=== PATIENT | female | born 1965 | race Caucasian/White ===

== ENCOUNTER 2017-05-17 09:10 | Observation (INO) | payer OTHER ==
[~2017-05-17] VITALS: Ht 154.9 cm; Wt 85.3 kg
[~2017-05-17 09:10] MED LIST: ALBU8HFA2 INH; ALBU90OI INH; AMOCLA500 PO; AMOCLA875 PO; AMOX500 PO; ARIP10; ARIP10 PO; ARIP15; ASPI81EC PO; AZIT250 PO; BENZ1; BENZ1 PO; BENZ100A PO; CEPH250A PO; CEPH500 PO; CETI5 PO; CLOBETTC TP; CLON.5; CYCL10 PO; ENJUVIA; EPIN.3I IM; EPIPEN0.3 MG/0.3; ERYT.5TO BOTHEYES; FAMO20 PO; Flonase 0.05% N16 GM; GENT15TO TOP; HALO2 PO; HALO5 PO; HYDACE5; HYDACE5 PO; HYDCOR2.5C PR; HYDPAM50; HYDR25SUP PR; IBUP600 PO; IBUP800 PO; JOCK ITCH15 GM TP; LAMO100; LAMO25 PO; LAMO5; LEVSOD150 PO; LORA.5 PO; LORA1; LORA10ER PO; Lamotrigine25 MG PO; MARIJUANA; MELO7.5 PO; MIRT15; Melatonin5 M1 PO; NAPR500 PO; NYST100P TOP; OTC ALLERGY MEDS PRN; OXYACE5T PO; PENVK500 PO; PIRO20 PO; POLY17UD PO; PRAV20 PO; PRED10 PO; PRED20 PO; PROACE100 PO; Pantoprazole So40 MG PO; QUET100 PO; QUET25 PO; RANI150; RXERYTOPTH OP; RXTRAM50 PO; SEROQUEL; SULTRIDS PO; SYNTHETIC CONJUGATED ESTROGENS B; Seroquel Xr300 MG PO; TOPAMAX; TRAM50 PO; TRAZ100; VITAMIN D2000 UNIT PO; Veetids 500500 MG PO; Wal-Phed30 MG PO; ZIPR20; [UNRECOGNIZED DRUG - REMARK] PO
[2017-05-17 10:11] LABS: Source, Urine Clean Catch
[2017-05-17 10:15] LABS: BASOPHILS ABSOLUTE AUTO 0.03 K/mm3 (0.00-0.23); BASOPHILS PERCENT AUTO 0 % (0-2); EOSINOPHILS ABSOLUTE AUTO 0.12 K/mm3 (0.00-0.68); EOSINOPHILS PERCENT AUTO 1 % (0-6); Hematocrit 45.1 % (33.0-51.0); Hemoglobin 14.6 g/dL (11.5-16.0); IMMATURE GRAN ABSOLUTE AUTO 0.06 K/mm3 (0.00-0.10); IMMATURE GRAN PERCENT AUTO 1 % (0-1); LYMPHOCYTES ABSOLUTE AUTO 2.69 K/mm3 (0.84-5.20); LYMPHOCYTES PERCENT AUTO 32 % (21-46); MONOCYTES PERCENT AUTO 9 % (4-13); Mean Corpuscular HGB 27.4 pg (26.0-34.0); Mean Corpuscular HGB Conc 32.4 g/dL (31.5-36.5); Mean Corpuscular Volume 85 fL (80-100); Mean Platelet Volume 9.9 fL (9.1-12.4); NEUTROPHILS ABSOLUTE AUTO 4.83 K/mm3 (1.96-9.15); NEUTROPHILS PERCENT AUTO 57 % (41-73); Platelet Count 298 K/mm3 (150-400); RDW Coefficient Variation 12.7 % (11.7-14.2); RDW Standard Deviation 38.7 fL (35.1-46.3); Red Blood Cell Count 5.32 M/mm3 (3.80-5.20); White Blood Cell Count 8.53 K/mm3 (4.00-11.30)
[2017-05-17 10:25] LABS: Bilirubin, Urine Neg (Neg); Blood, Urine Neg (Neg); Glucose Qualitative, Urine Neg (Neg); Ketones, Urine Neg (Neg); Leukocyte Esterase, Urine Neg (Neg); Nitrite, Urine Neg (Neg); Protein, Urine Neg (Neg); Urobilinogen, Urine NORM (Normal)
[2017-05-17 10:34] LABS: Appearance, Urine Clear (Clear); Color, Urine Yellow (P-Yellow)
[2017-05-17 10:39] LABS: U Amphetamine Screen Not Detected; U Barbituate Screen Not Detected; U Benzodiazapine Screen Not Detected; U Buprenorphine Screen Not Detected; U Cannabinoids Screen Not Detected; U Cocaine Screen Not Detected; U Methadone Screen Not Detected; U Methamphetamine Screen Not Detected; U Opiates Screen Not Detected; U Oxycodone Screen Not Detected; U Phencyclidine Screen Not Detected; U Propoxyphene Screen Not Detected
[2017-05-17 10:39] LABS: Alanine Aminotransfer (ALT/SGP 32 U/L (12-78); Albumin, Blood 3.9 g/dL (3.4-5.0); Alk Phos 93 U/L (50-136); Anion Gap 9 mmol/L (6-16); Aspartate Aminotrans (AST/SGOT 14 U/L (12-37); Bilirubin, Total 0.3 mg/dL (0.1-1.0); Blood Urea Nitrogen 12 mg/dL (8-24); Bun/Creatinine Ratio 21.6 (12.0-20.0); CO2, Blood 28 mmol/L (21-32); Calcium, Blood 9.2 mg/dL (8.5-10.1); Chloride, Blood 100 mmol/L (98-108); Creatinine, Blood 0.56 mg/dL (0.40-1.00); Ethanol (Alcohol), Blood, Med <3 mg/dL; Free Thyroxine 0.92 ng/dL (0.70-1.60); Globulin, Blood 4.1 g/dL (2.2-4.0); Glomerular Filtration Rate >60 (60-); Glucose, Blood 188 mg/dL (70-99); Potassium, Blood 4.2 mmol/L (3.5-5.5); Salicylate 1.7 mg/dL (2.8-20.0); Sodium, Blood 137 mmol/L (136-145)
[2017-05-17 10:44] LABS: Thyroid Stimulating Hormone 0.476 uIU/mL (0.360-4.800)
[2017-05-17 10:45] LABS: Acetaminophen, Random <2.0 ug/mL (10.0-30.0)
[2017-05-17] MEDS ORDERED: Synthroid/Lev0.15 MG PO (12:52)
[2017-05-17] MEDS ORDERED: PANT40 PO (12:52)
[2017-05-17] MEDS ORDERED: MELA3 PO (12:52)
[2017-05-17] MEDS ORDERED: QUET300 PO (12:53)
[2017-05-17] MEDS ORDERED: QUET100 PO (12:53)
[2017-05-17] MEDS ORDERED: CETI5 PO (12:54)
[2017-05-17] MEDS ORDERED: LITH300ER PO (12:54)
[2017-05-17] MEDS ORDERED: LORA.5 PO (12:55)
[2017-05-17] MEDS ORDERED: NAPR500 PO (12:55)
[2017-05-19 16:32] LABS: Lithium 0.31 mmol/L (0.60-1.20)
== END 2017-05-21 18:15 | disposition short-term general hospital (02) ==
LOC: ER 09:10 → EOR 09:11
PROVIDERS: Emergency Medicine
DX: F23 Brief psychotic disorder (principal); J45.909 Unspecified asthma, uncomplicated; G89.29 Other chronic pain; B19.20 Unspecified viral hepatitis C without hepatic coma; Z90.710 Acquired absence of both cervix and uterus; F17.210 Nicotine dependence, cigarettes, uncomplicated; Z98.51 Tubal ligation status; Z90.49 Acquired absence of other specified parts of digestive tract; Z79.899 Other long term (current) drug therapy
CPT/HCPCS: 80053; 80178; 81003; 81025; 84439; 84443; 85025; 93005; 93010; 96372; 99285; G0378; G0480

== ENCOUNTER 2018-09-11 13:11 | Day surgery (SDC) | payer OTHER ==
[~2018-09-11] VITALS: Ht 152.4 cm; Wt 81.5 kg
[~2018-09-11 13:11] MED LIST changes: +GLIP10 PO; +LITH300ER PO; +MELA3 PO; +METF500 PO; +PANT40 PO; +QUET300 PO; +Synthroid/Lev0.15 MG PO
== END 2018-09-11 16:15 | disposition home or self-care (01) ==
LOC: ORSCSDS 13:11
PROVIDERS: Internal Medicine Gastroenterology
PROC: 0DB68ZX Excision of Stomach, Via Natural or Artificial Opening Endoscopic, Diagnostic (ICD-10-PCS; principal; 2018-09-11 14:45)
PROC: 0DJD8ZZ Inspection of Lower Intestinal Tract, Via Natural or Artificial Opening Endoscopic (ICD-10-PCS; principal; 2018-09-11 14:45)
DX: R11.2 Nausea with vomiting, unspecified (principal); K21.9 Gastro-esophageal reflux disease without esophagitis; K29.70 Gastritis, unspecified, without bleeding; R19.5 Other fecal abnormalities; K57.30 Diverticulosis of large intestine without perforation or abscess without bleeding; I10 Essential (primary) hypertension; E11.9 Type 2 diabetes mellitus without complications; Z87.891 Personal history of nicotine dependence; G47.30 Sleep apnea, unspecified; E03.9 Hypothyroidism, unspecified; B19.20 Unspecified viral hepatitis C without hepatic coma; Z79.899 Other long term (current) drug therapy
CPT/HCPCS: 82947; 87081; J2704; J7120

== ENCOUNTER → 2018-10-29 | Outpatient (CLI) | payer OTHER ==
[2018-10-29 12:30] LABS: U Amphetamine Screen Not Detected; U Barbituate Screen Not Detected; U Benzodiazapine Screen Not Detected; U Buprenorphine Screen Not Detected; U Cannabinoids Screen Not Detected; U Cocaine Screen Not Detected; U Methadone Screen Not Detected; U Methamphetamine Screen Not Detected; U Opiates Screen Not Detected; U Oxycodone Screen Not Detected; U Phencyclidine Screen Not Detected; U Propoxyphene Screen Not Detected
[2018-11-05 11:07] LABS: TRICYCLIC ANTIDEP Negative ng/mL ({null, Cutoff=100})
== END ==
LOC: LAB 11:38 → LAB SHORT 11:38
PROVIDERS: Registered Nurse
DX: Z51.81 Encounter for therapeutic drug level monitoring (principal); Z79.899 Other long term (current) drug therapy
CPT/HCPCS: 80369; G0481

== ENCOUNTER → 2018-12-02 | Outpatient (CLI) | payer OTHER ==
[2018-12-02 15:53] LABS: Bilirubin, Urine Neg (Neg); Blood, Urine Neg (Neg); Glucose Qualitative, Urine Neg (Neg); Ketones, Urine Neg (Neg); Leukocyte Esterase, Urine 1+ (Neg); Nitrite, Urine Neg (Neg); Protein, Urine Neg (Neg); Specific Gravity, Urine 1.015 (1.003-1.022); Urobilinogen, Urine NORM (Normal)
[2018-12-02 16:02] LABS: Appearance, Urine Clear (Clear); Color, Urine Yellow (P-Yellow)
[2018-12-02 16:05] LABS: Bacteria Few /hpf; Red Blood Cells, Urine 0-2 /hpf (0-2); Squamous Epithelial Cells Few /hpf (Few)
[2018-12-02 16:45] LABS: Creatinine, Urine Random 68.5 mg/dL (27.00-270.00)
[2018-12-02 16:47] LABS: Microalb/Creat Ratio UR, Rand 16.934 mg/g (0.000-30.000); Microalbumin, Random Urine 11.6 mg/L (0.000-20.000)
== END | disposition home or self-care (01) ==
LOC: LAB 15:16 → LAB SHORT 15:16
PROVIDERS: Nurse Practitioner Family
DX: E11.9 Type 2 diabetes mellitus without complications (principal); N39.0 Urinary tract infection, site not specified
CPT/HCPCS: 81001; 82043; 82570; 87077; 87086; 87186

== ENCOUNTER → 2019-01-15 | Outpatient (CLI) | payer OTHER ==
[2019-01-16 14:42] LABS: Stool Occult Bld Immuno 1 Negative (NEGATIVE); Stool Occult Bld Immuno 2 Negative (NEGATIVE)
== END | disposition home or self-care (01) ==
LOC: LAB SHORT 11:00 → OLS 11:00 → LAB FUT 01-11 10:55
PROVIDERS: Internal Medicine Gastroenterology
DX: R19.5 Other fecal abnormalities (principal)
CPT/HCPCS: 82274

== ENCOUNTER → 2019-01-24 | Outpatient (CLI) | payer OTHER ==
[2019-01-27 18:24] LABS: Campylobacter Sp Not Detected (NOT DETECT); Plesiomonas Shigelloides Not Detected (NOT DETECT)
[2019-01-27 18:25] LABS: Adenovirus F 40/41 Not Detected (NOT DETECT); Astrovirus Not Detected (NOT DETECT); Cryptosporidium Not Detected (NOT DETECT); Cyclospora Cayetanensis Not Detected (NOT DETECT); E. Coli O157 Not Detected (NOT DETECT); Entamoeba Histolytica Not Detected (NOT DETECT); Enteroaggregative E. coli-EAEC Detected (NOT DETECT); Enteropathogenic E. coli-EPEC Detected (NOT DETECT); Enterotoxigenic E. coli-ETEC Not Detected (NOT DETECT); Giardia Lamblia Not Detected (NOT DETECT); Norovirus GI/GII Not Detected (NOT DETECT); Rotavirus A Not Detected (NOT DETECT); Salmonella Sp Not Detected (NOT DETECT); Sapovirus Not Detected (NOT DETECT); Shiga Toxin-prod E. coli-STEC Not Detected (NOT DETECT); Shigella/Enteroin E. coli-EIEC Not Detected (NOT DETECT); Vibrio Cholerae Not Detected (NOT DETECT); Vibrio Sp Not Detected (NOT DETECT); Yersinia Enterocolitica Not Detected (NOT DETECT)
== END | disposition home or self-care (01) ==
LOC: OLS 15:20 → LAB SHORT 15:20
PROVIDERS: Internal Medicine Gastroenterology
DX: R19.7 Diarrhea, unspecified (principal)
CPT/HCPCS: 0097U

== ENCOUNTER → 2019-07-22 | Outpatient (CLI) | payer OTHER ==
[~2019-07-22] MED LIST changes: +ATOR20 PO; +Diflucan150 MG PO; +EPINEPHRIN0.3 MG/0.3 IM; +EUTHYROX137 MCG PO; +FISH OIL 1,0001 EACH PO; +LISINOPRIL2.5 MG PO; -LITH300ER PO; +Lithium Carbon450 MG PO; -METF500 PO; +METF500C PO; +QUET200 PO; +Seroquel Xr50 MG PO; -Synthroid/Lev0.15 MG PO; +Triamcinolone A15 G2 EXT; +Triamcinolone A15 G4 TOP; +Ventolin/Prove6.7 GM INH; +ZYRTEC10 M2 PO
[2019-07-22 15:11] LABS: BASOPHILS ABSOLUTE AUTO 0.02 K/mm3 (0.00-0.23); BASOPHILS PERCENT AUTO 0 % (0-2); EOSINOPHILS PERCENT AUTO 2 % (0-6); Hemoglobin 14.4 g/dL (11.5-16.0); IMMATURE GRAN ABSOLUTE AUTO 0.02 K/mm3 (0.00-0.10); IMMATURE GRAN PERCENT AUTO 0 % (0-1); LYMPHOCYTES ABSOLUTE AUTO 2.22 K/mm3 (0.84-5.20); LYMPHOCYTES PERCENT AUTO 33 % (21-46); MONOCYTES ABSOLUTE AUTO 0.67 K/mm3 (0.16-1.47); MONOCYTES PERCENT AUTO 10 % (4-13); Mean Corpuscular HGB 26.5 pg (26.0-34.0); Mean Corpuscular Volume 83 fL (80-100); Mean Platelet Volume 10.7 fL (9.1-12.4); NEUTROPHILS PERCENT AUTO 56 % (41-73); Platelet Count 255 K/mm3 (150-400); RDW Coefficient Variation 15.1 % (11.7-14.2); Red Blood Cell Count 5.43 M/mm3 (3.80-5.20); White Blood Cell Count 6.83 K/mm3 (4.00-11.30)
[2019-07-22 15:24] LABS: Alanine Aminotransfer (ALT/SGP 39 U/L (12-78); Albumin, Blood 3.8 g/dL (3.4-5.0); Albumin/Globulin Ratio 1.2 (0.8-1.8); Alk Phos 100 U/L (40-126); Anion Gap 8 mmol/L (6-16); Aspartate Aminotrans (AST/SGOT 24 U/L (12-37); Bilirubin, Total 0.5 mg/dL (0.1-1.0); Blood Urea Nitrogen 14 mg/dL (8-24); Bun/Creatinine Ratio 17.3 (12.0-20.0); CO2, Blood 29 mmol/L (21-32); Calcium, Blood 9.2 mg/dL (8.5-10.1); Chloride, Blood 102 mmol/L (98-108); Creatinine, Blood 0.81 mg/dL (0.40-1.00); Globulin, Blood 3.3 g/dL (2.2-4.0); Glomerular Filtration Rate >60 (60-); Glucose, Blood 234 mg/dL (70-99); Potassium, Blood 4.4 mmol/L (3.5-5.5); Sodium, Blood 139 mmol/L (136-145); Total Protein, Blood 7.1 g/dL (6.4-8.2)
== END | disposition home or self-care (01) ==
LOC: LAB EV 15:08 → LAB SHORT 15:08
PROVIDERS: Physician Assistant Medical
DX: N76.0 Acute vaginitis (principal); R10.9 Unspecified abdominal pain; G89.29 Other chronic pain
CPT/HCPCS: 80053; 85025; 87070; 87106; 87205

== ENCOUNTER 2019-07-30 19:46 | Emergency (ER) | payer OTHER ==
[~2019-07-30] VITALS: Ht 152.4 cm; Wt 80.7 kg
[2019-07-30] MEDS ORDERED: BENADRYL25 MG PO (21:21)
[2019-07-30] MEDS ORDERED: IBUP600 PO (21:21)
== END 2019-07-30 21:54 | disposition home or self-care (01) ==
LOC: ER 19:46
DX: S93.402A Sprain of unspecified ligament of left ankle, initial encounter (principal); H10.13 Acute atopic conjunctivitis, bilateral; M54.9 Dorsalgia, unspecified; J45.909 Unspecified asthma, uncomplicated; F20.9 Schizophrenia, unspecified; G89.29 Other chronic pain; F17.210 Nicotine dependence, cigarettes, uncomplicated; Z91.030 Bee allergy status; Z79.84 Long term (current) use of oral hypoglycemic drugs; Z79.899 Other long term (current) drug therapy; Z79.2 Long term (current) use of antibiotics; Z86.19 Personal history of other infectious and parasitic diseases; W01.0XXA Fall on same level from slipping, tripping and stumbling without subsequent striking against object, initial encounter
CPT/HCPCS: 71045; 73610; 99284-25; Q0163

== ENCOUNTER → 2019-11-05 | Outpatient (CLI) | payer OTHER ==
[~2019-11-05] MED LIST changes: +BENADRYL25 MG PO
[2019-11-05 18:41] LABS: Microalb/Creat Ratio UR, Rand Unable to Calculate mg/g (0.000-30.000); Microalbumin, Random Urine <5.000 mg/L (0.000-20.000)
[2019-11-06 10:34] LABS: Candida species (DNA Probe) Positive (NEGATIVE); G. vaginalis (DNA Probe) Positive (NEGATIVE); T. vaginalis (DNA Probe) Negative (NEGATIVE)
== END | disposition home or self-care (01) ==
LOC: LAB SHORT 16:19 → LAB 16:19
PROVIDERS: Nurse Practitioner Family
DX: E11.40 Type 2 diabetes mellitus with diabetic neuropathy, unspecified (principal); N89.8 Other specified noninflammatory disorders of vagina
CPT/HCPCS: 82043; 82570; 87480; 87510; 87660

== ENCOUNTER 2020-06-23 08:03 | Emergency (ER) | payer OTHER ==
[~2020-06-23] VITALS: Ht 154.9 cm; Wt 90.7 kg
[2020-06-23 09:01] LABS: BASOPHILS ABSOLUTE AUTO 0.05 K/mm3 (0.00-0.23); BASOPHILS PERCENT AUTO 0 % (0-2); EOSINOPHILS PERCENT AUTO 1 % (0-6); Hematocrit 40.1 % (33.0-51.0); Hemoglobin 12.7 g/dL (11.5-16.0); IMMATURE GRAN ABSOLUTE AUTO 0.15 K/mm3 (0.00-0.10); IMMATURE GRAN PERCENT AUTO 1 % (0-1); LYMPHOCYTES ABSOLUTE AUTO 1.61 K/mm3 (0.84-5.20); LYMPHOCYTES PERCENT AUTO 10 % (21-46); MONOCYTES PERCENT AUTO 7 % (4-13); Mean Corpuscular HGB 27.1 pg (26.0-34.0); Mean Corpuscular HGB Conc 31.7 g/dL (31.5-36.5); Mean Corpuscular Volume 86 fL (80-100); NEUTROPHILS ABSOLUTE AUTO 12.38 K/mm3 (1.96-9.15); NEUTROPHILS PERCENT AUTO 80 % (41-73); Platelet Count 309 K/mm3 (150-400); RDW Coefficient Variation 16.5 % (11.7-14.2); RDW Standard Deviation 51.4 fL (35.1-46.3); Red Blood Cell Count 4.69 M/mm3 (3.80-5.20); White Blood Cell Count 15.49 K/mm3 (4.00-11.30)
[2020-06-23 09:19] LABS: Alanine Aminotransfer (ALT/SGP 34 U/L (12-78); Albumin, Blood 3.6 g/dL (3.4-5.0); Albumin/Globulin Ratio 1.1 (0.8-1.8); Alk Phos 93 U/L (50-136); Anion Gap 4 mmol/L (6-16); Aspartate Aminotrans (AST/SGOT 12 U/L (12-37); Bilirubin, Total 0.2 mg/dL (0.1-1.0); Blood Urea Nitrogen 13 mg/dL (8-24); Bun/Creatinine Ratio 26.5 (12.0-20.0); CO2, Blood 27 mmol/L (21-32); Calcium, Blood 8.7 mg/dL (8.5-10.1); Chloride, Blood 104 mmol/L (98-108); Creatinine, Blood 0.49 mg/dL (0.40-1.00); Globulin, Blood 3.2 g/dL (2.2-4.0); Glomerular Filtration Rate >60 (60-); Glucose, Blood 220 mg/dL (70-99); Potassium, Blood 4.7 mmol/L (3.5-5.5); Sodium, Blood 135 mmol/L (136-145); Total Protein, Blood 6.8 g/dL (6.4-8.2); Troponin I <0.015 ng/mL (0.000-0.040)
[2020-06-23] MEDS ORDERED: OXYACE7.5T PO (10:52)
== END 2020-06-23 11:33 | disposition home or self-care (01) ==
LOC: ER 08:03
PROVIDERS: Emergency Medicine
DX: S42.292A Other displaced fracture of upper end of left humerus, initial encounter for closed fracture (principal); S52.122A Displaced fracture of head of left radius, initial encounter for closed fracture; M25.412 Effusion, left shoulder; E11.9 Type 2 diabetes mellitus without complications; E03.9 Hypothyroidism, unspecified; I10 Essential (primary) hypertension; E78.00 Pure hypercholesterolemia, unspecified; F17.210 Nicotine dependence, cigarettes, uncomplicated; Z79.84 Long term (current) use of oral hypoglycemic drugs; Z79.899 Other long term (current) drug therapy; W10.9XXA Fall (on) (from) unspecified stairs and steps, initial encounter
CPT/HCPCS: 36415; 71045; 73030; 73200; 80053; 84484; 85025; 93005; 93010; 99284-25; A9270

== ENCOUNTER 2020-06-25 07:05 | Inpatient (IN) | payer OTHER ==
[~2020-06-25] VITALS: Ht 154.9 cm; Wt 91.9 kg
[~2020-06-25 07:05] MED LIST changes: +OXYACE7.5T PO
[2020-06-25] MEDS ORDERED: BASAGLAR K100 UNIT/8 SC ×2 (07:35)
[2020-06-25] MEDS ORDERED: LEVSOD137 PO ×2 (07:35)
[2020-06-25] MEDS ORDERED: ZYRTEC10 M2 PO ×2 (07:36)
[2020-06-25] MEDS ORDERED: QUETIAPINE FUM400 M2 PO ×2 (07:36)
[2020-06-25] MEDS ORDERED: LITHIUM CARBON PO ×2 (07:36)
[2020-06-25] MEDS ORDERED: PANT40 PO ×2 (07:36)
[2020-06-25] MEDS ORDERED: ATOR40TA PO ×2 (07:37)
[2020-06-25] MEDS ORDERED: METF500C PO ×2 (07:37)
[2020-06-25] MEDS ORDERED: PALI6TA PO ×2 (07:37)
[2020-06-25] MEDS ORDERED: LISI20 PO ×2 (07:37)
[2020-06-25] MEDS ORDERED: Ativan1 MG PO ×2 (07:38)
[2020-06-25] MEDS ORDERED: Flovent Diskus50 MCG ×2 (07:38)
[2020-06-25] MEDS ORDERED: Chantix1 MG PO ×2 (07:38)
[2020-06-25] MEDS ORDERED: GLUCOTROL10 MG PO ×2 (07:38)
[2020-06-25] MEDS ORDERED: EPIPEN0.3 MG/0.3 IM ×2 (07:39)
[2020-06-25] MEDS ORDERED: IBUP600 PO ×2 (07:39)
[2020-06-25] MEDS ORDERED: OXYCODONE-ACET1 EAC5 PO ×2 (07:41)
[2020-06-25 07:59] LABS: BASOPHILS ABSOLUTE AUTO 0.02 K/mm3 (0.00-0.23); BASOPHILS PERCENT AUTO 0 % (0-2); EOSINOPHILS ABSOLUTE AUTO 0.12 K/mm3 (0.00-0.68); EOSINOPHILS PERCENT AUTO 1 % (0-6); Hematocrit 36.2 % (33.0-51.0); Hemoglobin 11.4 g/dL (11.5-16.0); IMMATURE GRAN ABSOLUTE AUTO 0.11 K/mm3 (0.00-0.10); IMMATURE GRAN PERCENT AUTO 1 % (0-1); LYMPHOCYTES ABSOLUTE AUTO 1.52 K/mm3 (0.84-5.20); LYMPHOCYTES PERCENT AUTO 8 % (21-46); MONOCYTES ABSOLUTE AUTO 2.04 K/mm3 (0.16-1.47); MONOCYTES PERCENT AUTO 11 % (4-13); Mean Corpuscular HGB 26.8 pg (26.0-34.0); Mean Corpuscular HGB Conc 31.5 g/dL (31.5-36.5); Mean Corpuscular Volume 85 fL (80-100); Mean Platelet Volume 9.6 fL (9.1-12.4); NEUTROPHILS ABSOLUTE AUTO 15.08 K/mm3 (1.96-9.15); NEUTROPHILS PERCENT AUTO 80 % (41-73); Platelet Count 327 K/mm3 (150-400); RDW Coefficient Variation 16.5 % (11.7-14.2); Red Blood Cell Count 4.26 M/mm3 (3.80-5.20); White Blood Cell Count 18.89 K/mm3 (4.00-11.30)
[2020-06-25 08:21] LABS: Alanine Aminotransfer (ALT/SGP 29 U/L (12-78); Albumin, Blood 3.4 g/dL (3.4-5.0); Albumin/Globulin Ratio 0.9 (0.8-1.8); Alk Phos 83 U/L (50-136); Anion Gap 5 mmol/L (6-16); Aspartate Aminotrans (AST/SGOT 8 U/L (12-37); Bilirubin, Total 0.6 mg/dL (0.1-1.0); Blood Urea Nitrogen 17 mg/dL (8-24); Bun/Creatinine Ratio 19.1 (12.0-20.0); CO2, Blood 28 mmol/L (21-32); Calcium, Blood 8.6 mg/dL (8.5-10.1); Chloride, Blood 99 mmol/L (98-108); Creatinine, Blood 0.89 mg/dL (0.40-1.00); Globulin, Blood 3.6 g/dL (2.2-4.0); Glomerular Filtration Rate >60 (60-); Glucose, Blood 129 mg/dL (70-99); Potassium, Blood 4.5 mmol/L (3.5-5.5); Sodium, Blood 132 mmol/L (136-145); Troponin I <0.015 ng/mL (0.000-0.040)
[2020-06-25 08:24] LABS: PO2 Arterial 51.5 mmHg (80-100); pH Blood Arterial 7.37 (7.35-7.45)
[2020-06-25 10:30] LABS: Influenza A, PCR NEGATIVE (NEGATIVE); Influenza B, PCR NEGATIVE (NEGATIVE); Resp Syncytial Virus, PCR NEGATIVE (NEGATIVE); SARS-Cov-2 (COVID-19) PCR, MMC NEGATIVE (NEGATIVE)
--- NOTE | 2020-06-25 11:55 | NUR ---
THIS RN SPOKE WITH JIMMY FROM [facility] WHERE PT RESIDES. JIMMY STATES SHE WILL FAX PT'S MEDICATION LIST TO PCU FOR REVIEW. JIMMY REPORTS THAT THE PT MAKES HER OWN MEDICAL DECISIONS AND DOES NOT HAVE A POA ON FILE. SHE STATES THE PT'S DR HAS BEEN REDUCING HER SEROQUEL DOSAGE RECENTLY DUE TO PT BEING OVERLY SOMULENT AND PT HAS BEEN TAKING OXYCODONE PRESCRIPBED FOR HER L SHOULDER FX DX IN ED 06/23/20. JIMMY REPORTS PT RECENTLY HAD A MANIC EPISODE, WITH WORD SALAD, WHICH IS NORMAL FOR HER. PT IS A HEAVY SMOKER WELL PER HER REPORT.
[2020-06-25 12:19] LABS: Source, Urine Clean Catch
[2020-06-25 12:47] LABS: Appearance, Urine Clear (Clear); Bilirubin, Urine Neg (Neg); Blood, Urine Neg (Neg); Color, Urine Yellow (P-Yellow); Glucose Qualitative, Urine Neg (Neg); Ketones, Urine Neg (Neg); Leukocyte Esterase, Urine Neg (Neg); Nitrite, Urine Neg (Neg); Protein, Urine Neg (Neg); Specific Gravity, Urine 1.015 (1.003-1.022); Urobilinogen, Urine NORM (Normal)
[2020-06-25 12:52] LABS: PCO2 Arterial 49.4 mmHg (35-45); pH Blood Arterial 7.39 (7.35-7.45)
[2020-06-25 13:04] LABS: Lithium 1.26 mmol/L (0.60-1.20)
[2020-06-25 13:23] LABS: U Amphetamine Screen Not Detected; U Barbituate Screen Not Detected; U Benzodiazapine Screen Not Detected; U Buprenorphine Screen Not Detected; U Cannabinoids Screen Not Detected; U Cocaine Screen Not Detected; U Methadone Screen Not Detected; U Methamphetamine Screen Not Detected; U Opiates Screen Not Detected; U Oxycodone Screen DETECTED; U Phencyclidine Screen Not Detected; U Propoxyphene Screen Not Detected
--- NOTE | 2020-06-25 17:54 | NUR ---
SHIFT SUMMARY PT IS RESPONSIVE TO VERBAL STIMULUS AND CONFUSED. PT IS FOLLOWS INSTRUCTIONS INITIALLY BUT BECOMES CONFUSED AGAIN. PT WAS CONSTANTLY TRYING TO GET OUT OF BED SO BED ALARM WAS ACTIVATED AND ATIVAN WAS GIVEN. PT DOES NOT LIKE THE O2 SAT READER TAPED TO THEIR FINGER AND HAS CONSISTENTLY REMOVED IT SO MOVED IT TO TOE. PT ARRIVED WITH BIPAP AND HAS SWITCHED TO NASAL CANULA. PT HAS BEEN DOING WELL ON NASAL CANULA AT 5L, TRENDING IN THE MID 90S. PT HAD A HIGH TEMP THAT WAS TREATED WITH TYLENOL. TEMP RECHECKED AND WAS WNL. WEAVER CATHETER IS IN PLACE. FLUIDS RUNNING PER EMAR. PT WAS ABLE TO TAKE PO MEDS SAFELY.
--- NOTE | 2020-06-25 19:44 | NUR ---
THIS RN AGRESS WITH STUDENT NURSE SHIFT SUMMARY NOTE.
[2020-06-26 04:23] LABS: BASOPHILS ABSOLUTE AUTO 0.03 K/mm3 (0.00-0.23); BASOPHILS PERCENT AUTO 0 % (0-2); EOSINOPHILS ABSOLUTE AUTO 0.09 K/mm3 (0.00-0.68); EOSINOPHILS PERCENT AUTO 1 % (0-6); Hematocrit 33.3 % (33.0-51.0); Hemoglobin 10.3 g/dL (11.5-16.0); IMMATURE GRAN ABSOLUTE AUTO 0.09 K/mm3 (0.00-0.10); IMMATURE GRAN PERCENT AUTO 1 % (0-1); LYMPHOCYTES ABSOLUTE AUTO 1.66 K/mm3 (0.84-5.20); LYMPHOCYTES PERCENT AUTO 11 % (21-46); MONOCYTES ABSOLUTE AUTO 1.62 K/mm3 (0.16-1.47); MONOCYTES PERCENT AUTO 11 % (4-13); Mean Corpuscular HGB 26.4 pg (26.0-34.0); Mean Corpuscular HGB Conc 30.9 g/dL (31.5-36.5); Mean Corpuscular Volume 85 fL (80-100); Mean Platelet Volume 9.9 fL (9.1-12.4); NEUTROPHILS ABSOLUTE AUTO 11.87 K/mm3 (1.96-9.15); NEUTROPHILS PERCENT AUTO 77 % (41-73); Platelet Count 311 K/mm3 (150-400); RDW Coefficient Variation 16.2 % (11.7-14.2); White Blood Cell Count 15.36 K/mm3 (4.00-11.30)
[2020-06-26 04:44] LABS: Anion Gap 2 mmol/L (6-16); Blood Urea Nitrogen 7 mg/dL (8-24); Bun/Creatinine Ratio 13.1 (12.0-20.0); CO2, Blood 32 mmol/L (21-32); Calcium, Blood 8.5 mg/dL (8.5-10.1); Chloride, Blood 100 mmol/L (98-108); Creatinine, Blood 0.53 mg/dL (0.40-1.00); Glomerular Filtration Rate >60 (60-); Glucose, Blood 143 mg/dL (70-99); Magnesium, Blood 2.1 mg/dL (1.6-2.4); Potassium, Blood 4.2 mmol/L (3.5-5.5); Sodium, Blood 134 mmol/L (136-145)
--- NOTE | 2020-06-26 05:36 | NUR ---
SHIFT SUMMARY BEGINNING OF SHIFT, PT SOMEWHAT LETHARGIC, MEDS NOT GIVEN DUE TO ASPIRATIOPN BUT RISK BUT TOWARDS MIDDLE OF NIGHT, PT WOKE UP MORE AND TOLERATED PO INTAKE WELL W/OUT S/SX OF ASP. PT SLEPT POST MED ADMINISTRATION AND PRESENTS LETHARGIC AGAIN. PT HR 110'S BUT REST OF VSS. PT ON 4-5LNC. LUNGS COARSE T/O. WEAVER PATENT ANDDRAINING TO GRAVITY. L SHOULDER PRESENTS WITH BRUISES - PER REPORTS PT HAS SEVERE L SHOULDER FX. NOTED TO BE PAINFUL WITH MOVEMENT. PT PULLED IV AT ONE POINT AND HAS ALMOST PULLED WEAVER CATHETER WELL. NOT EASILY REOPRIENTABLE AT TIMES BUT THEN OTHER TIMES, PT EASILY REORIENTS. BED ALARM IN PLACE WITH 3 SIDE RAILS UP. Q6 CBG'S STABLE, INSULIN HELD DUE TO NPO STATUS. OTHERWISE, PT RESTING OFF AND ON, PRESENTS WITH OFF AND ON CONCRETE / CONFUSED THOUGHT. WILL CONTINUE TO MONITOR UNTIL SHIFT CHANGE.
--- NOTE | 2020-06-26 17:49 | NUR ---
SHIFT SUMMARY NO ACUTE EVENTS THIS SHIFT, VSS. PATIENT TITRATED DOWN TO ROOM AIR, TOLERATING WELL WITH SATS MAINTAINING IN 90S. PATIENT ENDORSES 10/10 PAIN IN LEFT SHOULDER WITH SORENESS IN L ARM. PATIENT ENDORSES IMPROVEMENT IN PAIN UPON REASSESSMENT AND APPEARS SATISFIED WITH PAIN MANAGEMENT REGIMEN. PERCOCET ALSO AVAILABLE PRN AND GIVEN PER EMAR. PATIENT GOT UP TO BATHROOM FOR SHOWER WITH FIELD APPRAISER, TOLERATED WELL. PATIENT IS ABLE TO HOLD LOGICAL CONVERSATION WITH STAFF, CALLS APPROPRIATELY AT TIMES, AT OTHER TIMES WILL GET UP UNASSISTED SO BED ALARM AND CHAIR ALARM IN USE. PATIENT IS ABLE TO RECALL FAMILY PHONE NUMBERS ACCURATELY. PATIENT STARTED ON PO DIET TODAY, TOLERATING WELL, TAKES MEDS WHOLE SAFELY.
[2020-06-27 04:08] LABS: Hemoglobin 9.9 g/dL (11.5-16.0); Mean Corpuscular HGB 26.5 pg (26.0-34.0); Mean Corpuscular HGB Conc 30.9 g/dL (31.5-36.5); Mean Corpuscular Volume 86 fL (80-100); Mean Platelet Volume 9.9 fL (9.1-12.4); Platelet Count 314 K/mm3 (150-400); RDW Standard Deviation 51.2 fL (35.1-46.3); Red Blood Cell Count 3.73 M/mm3 (3.80-5.20); White Blood Cell Count 13.65 K/mm3 (4.00-11.30)
[2020-06-27 04:32] LABS: Alanine Aminotransfer (ALT/SGP 25 U/L (12-78); Albumin, Blood 2.6 g/dL (3.4-5.0); Albumin/Globulin Ratio 0.8 (0.8-1.8); Alk Phos 73 U/L (50-136); Anion Gap 2 mmol/L (6-16); Aspartate Aminotrans (AST/SGOT 8 U/L (12-37); Bilirubin, Total 0.6 mg/dL (0.1-1.0); Blood Urea Nitrogen 16 mg/dL (8-24); Bun/Creatinine Ratio 27.9 (12.0-20.0); CO2, Blood 33 mmol/L (21-32); Calcium, Blood 8.9 mg/dL (8.5-10.1); Chloride, Blood 96 mmol/L (98-108); Creatinine, Blood 0.57 mg/dL (0.40-1.00); Globulin, Blood 3.4 g/dL (2.2-4.0); Glomerular Filtration Rate >60 (60-); Glucose, Blood 182 mg/dL (70-99); Potassium, Blood 4.3 mmol/L (3.5-5.5); Sodium, Blood 131 mmol/L (136-145)
--- NOTE | 2020-06-27 05:05 | NUR ---
SHIFT SUMMARY PT APPEARS TO BE BACK AT BASELINE MENTATION. AXO BUT PRESENTS DEVELOPMENTALLY DELAYED POSSIBLY. IN SR/ST. VSS. ON RA OR CPAP W/ 4L BLEEDIN WHEN ASLEEP. EATING AND TOLERATING WELL. HAS BEEN MUCH LESS IMPULSIVE THIS SHIFT. BED AND TAB ALARM STILL IN USE THOUGH. WEAVER PATENT AND DRAINING. L SHOULDER PAIN MUCH MORE CONTROLLED PER PT. OTHERWISE, PT HAS BEEN SLEEPING FOR MOST OF NIGHT POST 2100 MEDICATIONS. WILL CONTINUE TO MONITOR UNTIL SHIFT CHANGE.
--- NOTE | 2020-06-27 15:55 | NUR ---
PT TRANSFER PT A&O T/OUT SHIFT, RESP EVEN AND UNLABORED. PT AMBULATES INDEPENDENTLY IN ROOM, ASSISTANCE PROVIDED WITH MANAGMENT OF CORDS/TUBES, BED/CHAIR ALARMS ON FOR SAFETY AND OCCASIONAL IMPULSIVENESS. VSS. PT ADMISSION STATUS CHANGED TO MEDICAL. REPORT GIVEN TO OLGA IN SURGICAL DEPT.
--- NOTE | 2020-06-27 16:17 | NUR ---
SHIFT SUMMARY TRANSFER FROM PCU. PT A&OX4, VSS, PLEASANT, BRETT PO, SHORT WALK AROUND THE UNIT/SBA, SITTING IN CHAIR. DENIES PAIN AT THIS TIME. LUE IN SLING. WILL REPORT TO ONCOMING OSMIN RN.
--- NOTE | 2020-06-27 21:06 | NUR ---
Patient gives permission for student to participate in care
--- NOTE | 2020-06-27 21:07 | NUR ---
GARCIA Musa gave RN verbal order to remove pt. cather. student removed cather with RICARDO Gupta present at bedside. PT. received education on bladder training states verbal understanding and will notify nurse with post remaoval void, 10ml fluid removed cather removed PT. reports mild discomfort michaels visually intack . PT. reports relief.
--- NOTE | 2020-06-28 04:20 | NUR ---
SHIFT SUMMARY: PT W/ MH HX,LUE IN SLING DECLINED SURGICAL REPAIR,PT SELF AMBULATES THE HALLWAY GAIT IS NORMAL W/ GUARDING TO LUE HX OF SCHIZOPRENIA,DM2,HYPOTHYROIDISM,HEAVY SMOKER,W/ MANIC BEHAVIOR WHO LIVES AT THE [facility], TRANSFER FROM PCU,OWEN CATHER DCED PT VOIDING INDEPENDENTLY,CPAP @HS, PT W/O IV ACCESS SELF REMOVED,PAIN MANAGED W/ MEDICATIONS APPEARS TO BE RESTING COMFORTABLY CALL LIGHT WITHIN REACH.
--- NOTE | 2020-06-28 14:35 | NUR ---
discharged DISCHARGE COMPLETED. PT LEFT UNIT BY AMBULATION TO AWAIT RIDE OUT FRONT. DECLINED WC. HAD POSSESSIONS IN HAND.
--- NOTE | 2020-06-28 17:37 | NUR ---
Spiritual care note: Per pt request, I visited Anastasia this morning. She was being discharged in a couple hours. Anastasia was talkative and rambled between topics. She seemed unable to hold meaningful conversation. Attempted to talk to her about her shoulder injury and surgery, but she could not stay on topic. Regardless, she appeared to enjoy companionship and prayer. She asked numerous holiness questions. She told me she has 3 dtrs and she is estranged from one. She enjoys her foster care facility and fels well cared-for there. No fears presented.
== END 2020-06-28 14:35 | disposition home or self-care (01) | DRG 871 ==
LOC: ER 07:05 → PCU 09:07 → SURS 06-27 15:38
PROVIDERS: Emergency Medicine; Internal Medicine; ADMIT Internal Medicine
PROC: 5A09357 Assistance with Respiratory Ventilation, Less than 24 Consecutive Hours, Continuous Positive Airway Pressure (ICD-10-PCS; principal; 2020-06-25)
DX: A41.9 Sepsis, unspecified organism (principal); J18.9 Pneumonia, unspecified organism; G92 Toxic encephalopathy; J96.02 Acute respiratory failure with hypercapnia; J96.01 Acute respiratory failure with hypoxia; S42.92XA Fracture of left shoulder girdle, part unspecified, initial encounter for closed fracture; F31.9 Bipolar disorder, unspecified; R65.20 Severe sepsis without septic shock; J45.909 Unspecified asthma, uncomplicated; F20.9 Schizophrenia, unspecified; E11.9 Type 2 diabetes mellitus without complications; E03.9 Hypothyroidism, unspecified; T40.605A Adverse effect of unspecified narcotics, initial encounter; Z96.612 Presence of left artificial shoulder joint; Z20.822 Contact with and (suspected) exposure to COVID-19; I10 Essential (primary) hypertension; G47.33 Obstructive sleep apnea (adult) (pediatric); X58.XXXA Exposure to other specified factors, initial encounter; Z90.710 Acquired absence of both cervix and uterus; Z90.49 Acquired absence of other specified parts of digestive tract; Z87.891 Personal history of nicotine dependence; Z79.899 Other long term (current) drug therapy; Z79.51 Long term (current) use of inhaled steroids; Z86.19 Personal history of other infectious and parasitic diseases; Z90.722 Acquired absence of ovaries, bilateral; Z90.79 Acquired absence of other genital organ(s); Z79.4 Long term (current) use of insulin; Z98.890 Other specified postprocedural states
CPT/HCPCS: 0241U; 36415; 36600; 51701; 71045; 71260; 80048; 80053; 80178; 81003; 82140; 82803; 82947; 83605; 83735; 84145; 84484; 85025; 85027; 85379; 93005; 93010; 94640; 94660; 94667; 94762; 96365; 96367; 99285-25; A9270; A9270-GY; J0456; J0696; J1650; J1885; J2060; J2405; J7030; J7050; Q9967

== ENCOUNTER 2020-07-10 09:58 | Emergency (ER) | payer OTHER ==
[~2020-07-10] VITALS: Ht 160 cm; Wt 90.7 kg
[~2020-07-10 09:58] MED LIST changes: +ATOR40TA PO; +Ativan1 MG PO; +BASAGLAR K100 UNIT/8 SC; +Chantix1 MG PO; +EPIPEN0.3 MG/0.3 IM; +Flovent Diskus50 MCG; +GLUCOTROL10 MG PO; +LEVSOD137 PO; +LISI20 PO; +LITHIUM CARBON PO; +OXYCODONE-ACET1 EAC5 PO; +PALI6TA PO; +QUETIAPINE FUM400 M2 PO
[2020-07-10 10:26] LABS: BASOPHILS ABSOLUTE AUTO 0.08 K/mm3 (0.00-0.23); BASOPHILS PERCENT AUTO 1 % (0-2); EOSINOPHILS ABSOLUTE AUTO 0.33 K/mm3 (0.00-0.68); EOSINOPHILS PERCENT AUTO 2 % (0-6); Hematocrit 34.7 % (33.0-51.0); Hemoglobin 10.6 g/dL (11.5-16.0); IMMATURE GRAN ABSOLUTE AUTO 0.53 K/mm3 (0.00-0.10); IMMATURE GRAN PERCENT AUTO 3 % (0-1); LYMPHOCYTES ABSOLUTE AUTO 2.67 K/mm3 (0.84-5.20); LYMPHOCYTES PERCENT AUTO 16 % (21-46); MONOCYTES ABSOLUTE AUTO 1.18 K/mm3 (0.16-1.47); MONOCYTES PERCENT AUTO 7 % (4-13); Mean Corpuscular HGB 27.1 pg (26.0-34.0); Mean Corpuscular HGB Conc 30.5 g/dL (31.5-36.5); Mean Corpuscular Volume 89 fL (80-100); NEUTROPHILS ABSOLUTE AUTO 12.39 K/mm3 (1.96-9.15); NEUTROPHILS PERCENT AUTO 72 % (41-73); NRBC ABSOLUTE 0.08 K/mm3 (0.00-0.02); NRBC Auto 0.5 /100 WBC (0.0-0.2); Platelet Count 416 K/mm3 (150-400); RDW Coefficient Variation 18.3 % (11.7-14.2); RDW Standard Deviation 56.4 fL (35.1-46.3); Red Blood Cell Count 3.91 M/mm3 (3.80-5.20); White Blood Cell Count 17.18 K/mm3 (4.00-11.30)
[2020-07-10 10:40] LABS: Source, Urine Clean Catch
[2020-07-10 10:45] LABS: Alanine Aminotransfer (ALT/SGP 27 U/L (12-78); Albumin, Blood 3.2 g/dL (3.4-5.0); Albumin/Globulin Ratio 0.9 (0.8-1.8); Alk Phos 127 U/L (50-136); Anion Gap 2 mmol/L (6-16); Aspartate Aminotrans (AST/SGOT 7 U/L (12-37); Bilirubin, Total 0.3 mg/dL (0.1-1.0); Blood Urea Nitrogen 13 mg/dL (8-24); Bun/Creatinine Ratio 24.3 (12.0-20.0); CO2, Blood 25 mmol/L (21-32); Calcium, Blood 8.8 mg/dL (8.5-10.1); Chloride, Blood 107 mmol/L (98-108); Creatinine, Blood 0.53 mg/dL (0.40-1.00); Ethanol (Alcohol), Blood, Med <3 mg/dL; Globulin, Blood 3.7 g/dL (2.2-4.0); Glomerular Filtration Rate >60 (60-); Glucose, Blood 205 mg/dL (70-99); Potassium, Blood 5.1 mmol/L (3.5-5.5); Sodium, Blood 134 mmol/L (136-145); Total Protein, Blood 6.9 g/dL (6.4-8.2)
[2020-07-10 10:58] LABS: Bilirubin, Urine Neg (Neg); Blood, Urine Neg (Neg); Glucose Qualitative, Urine Neg (Neg); Ketones, Urine Neg (Neg); Leukocyte Esterase, Urine Neg (Neg); Nitrite, Urine Neg (Neg); Protein, Urine Neg (Neg); Specific Gravity, Urine 1.005 (1.003-1.022); Urobilinogen, Urine NORM (Normal)
[2020-07-10 11:15] LABS: Appearance, Urine Hazy (Clear); Bacteria Rare /hpf; Color, Urine Yellow (P-Yellow); Red Blood Cells, Urine 0-2 /hpf (0-2); Squamous Epithelial Cells Many /hpf (Few); White Blood Cells, Urine 0-2 /hpf (0-5)
[2020-07-10 11:20] LABS: U Amphetamine Screen Not Detected; U Barbituate Screen Not Detected; U Benzodiazapine Screen Not Detected; U Buprenorphine Screen Not Detected; U Cannabinoids Screen Not Detected; U Cocaine Screen Not Detected; U Methadone Screen Not Detected; U Methamphetamine Screen Not Detected; U Opiates Screen Not Detected; U Oxycodone Screen Not Detected; U Phencyclidine Screen Not Detected; U Propoxyphene Screen Not Detected
[2020-07-10 11:41] LABS: International Normalized Ratio 0.97; Prothrombin Time Results 10.5 Sec (9.7-11.5)
== END 2020-07-10 12:50 | disposition home or self-care (01) ==
LOC: ER 09:58
PROVIDERS: Emergency Medicine
DX: R41.82 Altered mental status, unspecified (principal); E11.9 Type 2 diabetes mellitus without complications; I10 Essential (primary) hypertension; E03.9 Hypothyroidism, unspecified; F17.200 Nicotine dependence, unspecified, uncomplicated; Z79.899 Other long term (current) drug therapy; Z79.84 Long term (current) use of oral hypoglycemic drugs; Z88.0 Allergy status to penicillin; Z91.011 Allergy to milk products; Z91.030 Bee allergy status; Z79.4 Long term (current) use of insulin
CPT/HCPCS: 36415; 70450; 80053; 81001; 85025; 85610; 93005; 93010; 99285-25; G0480

== ENCOUNTER 2021-03-15 05:28 | Inpatient (IN) | payer OTHER ==
[~2021-03-15] VITALS: Ht 165.1 cm; Wt 87.7 kg
[2021-03-15 06:18] LABS: BASOPHILS ABSOLUTE AUTO 0.05 K/mm3 (0.00-0.23); BASOPHILS PERCENT AUTO 0 % (0-2); EOSINOPHILS ABSOLUTE AUTO 0.34 K/mm3 (0.00-0.68); EOSINOPHILS PERCENT AUTO 2 % (0-6); Hematocrit 45.5 % (33.0-51.0); Hemoglobin 13.8 g/dL (11.5-16.0); IMMATURE GRAN ABSOLUTE AUTO 0.12 K/mm3 (0.00-0.10); IMMATURE GRAN PERCENT AUTO 1 % (0-1); LYMPHOCYTES ABSOLUTE AUTO 2.63 K/mm3 (0.84-5.20); LYMPHOCYTES PERCENT AUTO 17 % (21-46); MONOCYTES ABSOLUTE AUTO 1.28 K/mm3 (0.16-1.47); MONOCYTES PERCENT AUTO 8 % (4-13); Mean Corpuscular HGB 25.7 pg (26.0-34.0); Mean Corpuscular HGB Conc 30.3 g/dL (31.5-36.5); Mean Corpuscular Volume 85 fL (80-100); Mean Platelet Volume 10.2 fL (9.1-12.4); NEUTROPHILS ABSOLUTE AUTO 11.07 K/mm3 (1.96-9.15); NEUTROPHILS PERCENT AUTO 71 % (41-73); Platelet Count 347 K/mm3 (150-400); RDW Coefficient Variation 16.6 % (11.7-14.2); RDW Standard Deviation 51.6 fL (35.1-46.3); Red Blood Cell Count 5.37 M/mm3 (3.80-5.20); White Blood Cell Count 15.49 K/mm3 (4.00-11.30)
[2021-03-15 06:36] LABS: Alanine Aminotransfer (ALT/SGP 37 U/L (12-78); Albumin, Blood 3.4 g/dL (3.4-5.0); Alk Phos 103 U/L (50-136); Anion Gap 6 mmol/L (6-16); Aspartate Aminotrans (AST/SGOT 13 U/L (12-37); Bilirubin, Total 0.3 mg/dL (0.1-1.0); Blood Urea Nitrogen 16 mg/dL (8-24); Bun/Creatinine Ratio 19.8 (12.0-20.0); CO2, Blood 30 mmol/L (21-32); Calcium, Blood 9.4 mg/dL (8.5-10.1); Chloride, Blood 101 mmol/L (98-108); Creatinine, Blood 0.81 mg/dL (0.40-1.00); Globulin, Blood 3.4 g/dL (2.2-4.0); Glomerular Filtration Rate >60 (60-); Glucose, Blood 152 mg/dL (70-99); Sodium, Blood 137 mmol/L (136-145); Total Protein, Blood 6.8 g/dL (6.4-8.2); Troponin I 0.483 ng/mL (0.000-0.040)
[2021-03-15 08:54] LABS: Anti-Xa UFH, PHA Monitoring <0.10 IU/mL; International Normalized Ratio 1.02; Prothrombin Time Results 10.7 Sec (9.7-11.5)
[2021-03-15 10:02] LABS: Influenza A, PCR NEGATIVE (NEGATIVE); Influenza B, PCR NEGATIVE (NEGATIVE); Resp Syncytial Virus, PCR NEGATIVE (NEGATIVE); SARS-Cov-2 (COVID-19) PCR, MMC NEGATIVE (NEGATIVE)
[2021-03-15 11:49] LABS: Troponin I 0.512 ng/mL (0.000-0.040)
[2021-03-15 12:14] LABS: Lithium 1.13 mmol/L (0.60-1.20)
--- NOTE | 2021-03-15 15:37 | NUR ---
ASSUMPTION OF CARE: PATIENT ARRIVED ON UNIT AROUND 1400 AND AMBULATED TO BED. PATIENT REQUESTED TO USE BEDSIDE COMMODE AND AMBULATED WITHOUT ASSISTANCE. PATIENT BECOMES APNEIC WHEN SLEEPING. LUNGS ARE COARSE/RUB. VS STABLE AND PATIENT DENIES CHEST PAIN. NON STRESS TEST SCHEDULED FOR 03/16. PATIENT NPO ALL DAY, WAS GIVEN 1/2 SANDWICH, FRUIT, CRANBERRY JUICE, AND SUGAR FREE PUDDING. PATIENT NO CAFFEINE AFTER 2000 AND NPO AFTER MIDNIGHT.
--- NOTE | 2021-03-15 18:19 | NUR ---
SHIFT SUMMARY: PATIENT STABLE SINCE ARRIVAL AND DENIES CHEST PAIN OR PAIN WITH COUGHING. WAS NPO IN ED AND CHANGED TO NPO AFTER MIDNIGHT SHORTLY AFTER ARRIVAL. PATIENT URINATES FREQUENTLY AND CAN AMBULATE TO BEDSIDE COMMODE. USES CALL LIGHT APPROPRIATELY. PATIENT FREQUENTLY DESATS TO 80S WHEN RESTING. PATIENT ON CONTINUOUS PULSE OX AND EDUCATED THAT MONITOR DINGING INDICATES HER O2 SATS ARE LOW AND SHE NEEDS TO DEEP BREATHE. MEDICATED PER EMAR. WILL REPORT TO NOC RN.
[2021-03-15 18:39] LABS: Troponin I 0.438 ng/mL (0.000-0.040)
[2021-03-16 01:14] LABS: BASOPHILS ABSOLUTE AUTO 0.03 K/mm3 (0.00-0.23); BASOPHILS PERCENT AUTO 0 % (0-2); EOSINOPHILS ABSOLUTE AUTO 0.01 K/mm3 (0.00-0.68); EOSINOPHILS PERCENT AUTO 0 % (0-6); Hematocrit 42.6 % (33.0-51.0); IMMATURE GRAN ABSOLUTE AUTO 0.22 K/mm3 (0.00-0.10); IMMATURE GRAN PERCENT AUTO 1 % (0-1); LYMPHOCYTES ABSOLUTE AUTO 1.05 K/mm3 (0.84-5.20); LYMPHOCYTES PERCENT AUTO 6 % (21-46); MONOCYTES ABSOLUTE AUTO 0.76 K/mm3 (0.16-1.47); MONOCYTES PERCENT AUTO 4 % (4-13); Mean Corpuscular HGB 25.8 pg (26.0-34.0); Mean Corpuscular HGB Conc 30.5 g/dL (31.5-36.5); Mean Corpuscular Volume 85 fL (80-100); NEUTROPHILS ABSOLUTE AUTO 16.86 K/mm3 (1.96-9.15); NEUTROPHILS PERCENT AUTO 89 % (41-73); Platelet Count 306 K/mm3 (150-400); RDW Coefficient Variation 16.2 % (11.7-14.2); RDW Standard Deviation 49.9 fL (35.1-46.3); Red Blood Cell Count 5.03 M/mm3 (3.80-5.20); White Blood Cell Count 18.93 K/mm3 (4.00-11.30)
[2021-03-16 01:45] LABS: Alanine Aminotransfer (ALT/SGP 33 U/L (12-78); Albumin, Blood 3.3 g/dL (3.4-5.0); Alk Phos 99 U/L (50-136); Anion Gap 5 mmol/L (6-16); Aspartate Aminotrans (AST/SGOT <3 U/L (12-37); Bilirubin, Total 0.2 mg/dL (0.1-1.0); Blood Urea Nitrogen 20 mg/dL (8-24); Bun/Creatinine Ratio 34.2 (12.0-20.0); CO2, Blood 31 mmol/L (21-32); Calcium, Blood 9.4 mg/dL (8.5-10.1); Chloride, Blood 98 mmol/L (98-108); Creatinine, Blood 0.59 mg/dL (0.40-1.00); Globulin, Blood 3.2 g/dL (2.2-4.0); Glomerular Filtration Rate >60 (60-); Glucose, Blood 299 mg/dL (70-99); Potassium, Blood 5.2 mmol/L (3.5-5.5); Sodium, Blood 134 mmol/L (136-145); Total Protein, Blood 6.5 g/dL (6.4-8.2)
--- NOTE | 2021-03-16 05:56 | NUR ---
SHIFT SUMMARY PATIENT A&OX3-4 BUT FORGETFUL AND DOES NOT KNOW LIMITS. SAYS ODD THINGS AT TIMES BUT IS MORE WITH IT THEN SHE SEEMS. NOT USING CALL LIGHT PROPERLY AND CONTINUES TO TRY TO GET UP WITHOUT RN THERE AND IS UNSTEADY AT TIMES. FALL PRECAUTIONS IN PLACE. VSS. ON 5L NC AND REFUSING CPAP. NSR ON THE MONITOR. NO CP NOTED. NPO AFTER MIDNIGHT FOR STRESS TEST TODAY. VOIDING FREQUENTLY PER BSC. HAD TROUBLE SLEEPING AT FIRST SO GOT MELATONIN ORDERED WITH GOOD RELIEF. DYSPNEA WITH EXERTION. TURNS SELF WELL IN BED. STANDY BY ASSIST IN ROOM. NO ACUTE CONCERNS AT THIS TIME. WILL CONTINUE TO MONITOR UNTIL REPORT GIVEN TO DAYSHIFT RN.
[2021-03-16 13:34] LABS: Bicarbonate Venous 29.4 mmol/L (24.0-30.0); PCO2 Venous 53.8 mmHg (38-42); PO2 Venous 66.4 mmHg (38-42); pH Blood Venous 7.38 (7.34-7.37)
[2021-03-16 13:53] LABS: CHOL/HDL RATIO 2.8; Cholesterol 123 mg/dL (50-200); HDL Cholesterol 44 mg/dL (>39); Low Density Lipoprotein Chol 42 mg/dL (0-110); Triglycerides 183 mg/dL (30-160); Very Low Density Lipoprot Chol 36 mg/dL (6-32)
--- NOTE | 2021-03-16 14:10 | NUR ---
Pt. was alert in bed. After establishing rapport the pt. welcomed my visit. Pt. was unsettled by the wait for testing, but acknowedged that my visit would help pass the time. Explored issues of marilynn and belief. Pt. displayed growing engagment the longer I stayed. Normalized the patient experience. The pt. verbalized her interest. After pastoral prayer, Pt. prayed for ME. Will monitor.
--- NOTE | 2021-03-16 14:47 | NUR ---
Mita Lino said that pt was done with Lexiscan. Given her lunch tray reheated, and cup of coffee.
--- NOTE | 2021-03-16 18:02 | NUR ---
SHIFT SUMMARY: PATIENT CONFUSED AND FORGETFUL AT TIMES. VS STABLE T/O SHIFT. PATIENT REPORTS SHE IS "FEELING A LOT BETTER THAN YESTERDAY." CAREGIVER BROUGHT HOME MED INVEGA AND PHARMACY VERIFIED IT. IT IS IN PATIENT DRAWER. PATIENT'S GLUCOSE HAS RANGED 250-320S. PATIENT STATES THIS IS ABNORMAL - EDUCATED ON NPO DIET AND STRESS' EFFECT ON BLOOD SUGAR. PATIENT UP IN CHAIR AFTERNOON AND EVENING - STATES SHE PREFERS THE CHAIR. CHAIR ALARM SET PATIENT IS SBA. HEPARIN PAUSED UNTIL 2300 PER PHARMACY. PATIENT DENIES SOB AND CHEST PAIN. WILL REPORT TO NOC RN.
[2021-03-17 01:54] LABS: BASOPHILS ABSOLUTE AUTO 0.05 K/mm3 (0.00-0.23); BASOPHILS PERCENT AUTO 0 % (0-2); EOSINOPHILS PERCENT AUTO 0 % (0-6); Hematocrit 42.7 % (33.0-51.0); Hemoglobin 13.1 g/dL (11.5-16.0); IMMATURE GRAN ABSOLUTE AUTO 0.32 K/mm3 (0.00-0.10); IMMATURE GRAN PERCENT AUTO 1 % (0-1); LYMPHOCYTES ABSOLUTE AUTO 1.21 K/mm3 (0.84-5.20); LYMPHOCYTES PERCENT AUTO 5 % (21-46); MONOCYTES PERCENT AUTO 7 % (4-13); Mean Corpuscular HGB 25.5 pg (26.0-34.0); Mean Corpuscular HGB Conc 30.7 g/dL (31.5-36.5); Mean Corpuscular Volume 83 fL (80-100); Mean Platelet Volume 9.8 fL (9.1-12.4); NEUTROPHILS ABSOLUTE AUTO 19.81 K/mm3 (1.96-9.15); NEUTROPHILS PERCENT AUTO 87 % (41-73); Platelet Count 359 K/mm3 (150-400); RDW Coefficient Variation 16.2 % (11.7-14.2); RDW Standard Deviation 49.4 fL (35.1-46.3); Red Blood Cell Count 5.13 M/mm3 (3.80-5.20); White Blood Cell Count 22.89 K/mm3 (4.00-11.30)
[2021-03-17 02:03] LABS: Albumin, Blood 3.2 g/dL (3.4-5.0); Anion Gap 4 mmol/L (6-16); Blood Urea Nitrogen 24 mg/dL (8-24); Bun/Creatinine Ratio 34.7 (12.0-20.0); CO2, Blood 31 mmol/L (21-32); Calcium, Blood 9.3 mg/dL (8.5-10.1); Chloride, Blood 97 mmol/L (98-108); Creatinine, Blood 0.69 mg/dL (0.40-1.00); Glomerular Filtration Rate >60 (60-); Glucose, Blood 350 mg/dL (70-99); Phosphorus, Blood 3.8 mg/dL (2.5-4.9); Potassium, Blood 5.3 mmol/L (3.5-5.5); Sodium, Blood 132 mmol/L (136-145)
--- NOTE | 2021-03-17 05:39 | NUR ---
SHIFT SUMMARY PT ALERT AND ORIENTED X4. MUMBLES AT TIMES. FREQUENT URINATION D/T LASIX. LEFT A/C IV REMOVED D/T BLEEDING. HEP GTT INFUSING IN RIGHT FOREARM. EVENING CBG OF 357. PROVIDER NOTIFIED AND LANTUS CHANGED TO BID. VERY ACTIVE TO START SHIFT. HUNGRY AND RESTLESS. WALKED PT AROUND UNIT AT 0100. EXPIRATORY WHEEZING IN LUNGS. ON 5L NC MAINTAINING SATS OVER 93%. HR 70'S TO 80'S NSR. BP STABLE. NO C/O PAIN. IN BED SLEEPING WITH CALL ALARM AT SIDE. WILL CONTINUE TO MONITOR UNTIL REPORT GIVEN.
--- NOTE | 2021-03-17 11:43 | NUR ---
PHYSICIAN UPDATED PT'S HIGH CBG OVER 350. NEW ORDERS TO BE PLACED.
--- NOTE | 2021-03-17 17:25 | NUR ---
SHIFT SUMMARY PT ALERT AND ORIENTED. IMPULSIVE AND CONFUSED AT TIMES. HR STABLE. BP STABLE. OXYGEN SATURATION MAINTAINED ABOVE 90% ON 5-6 L OF OXYGEN VIA NC. PT HAS CHAIR AND BED ALARM ON D/T IMPULSIVE BEHAVIOR. PT HAS CALL LIGHT WITHIN REACH. SBA. NO CP OR PRESSURE. RIVET HEATER AT BEDSIDE THIS AM. SIGNING OFF FOR INPATIENT CARE. HOSPITALIST AWARE. HEPARIN GTT OFF. OFF WHEN ORDER CAME THROUGH, SEE EHR. WILL CONT TO MONITOR UNTIL REPORT GIVEN TO DOMENIC SILVA.
[2021-03-18 04:08] LABS: BASOPHILS ABSOLUTE AUTO 0.02 K/mm3 (0.00-0.23); BASOPHILS PERCENT AUTO 0 % (0-2); EOSINOPHILS ABSOLUTE AUTO 0.01 K/mm3 (0.00-0.68); EOSINOPHILS PERCENT AUTO 0 % (0-6); Hematocrit 42.9 % (33.0-51.0); Hemoglobin 13.3 g/dL (11.5-16.0); IMMATURE GRAN ABSOLUTE AUTO 0.22 K/mm3 (0.00-0.10); IMMATURE GRAN PERCENT AUTO 1 % (0-1); LYMPHOCYTES ABSOLUTE AUTO 0.84 K/mm3 (0.84-5.20); LYMPHOCYTES PERCENT AUTO 4 % (21-46); MONOCYTES ABSOLUTE AUTO 1.11 K/mm3 (0.16-1.47); MONOCYTES PERCENT AUTO 6 % (4-13); Mean Corpuscular HGB 25.7 pg (26.0-34.0); Mean Corpuscular Volume 83 fL (80-100); NEUTROPHILS ABSOLUTE AUTO 16.81 K/mm3 (1.96-9.15); NEUTROPHILS PERCENT AUTO 88 % (41-73); Platelet Count 367 K/mm3 (150-400); RDW Coefficient Variation 16.2 % (11.7-14.2); RDW Standard Deviation 48.5 fL (35.1-46.3); Red Blood Cell Count 5.17 M/mm3 (3.80-5.20); White Blood Cell Count 19.01 K/mm3 (4.00-11.30)
[2021-03-18 04:49] LABS: Albumin, Blood 3.2 g/dL (3.4-5.0); Anion Gap 4 mmol/L (6-16); Blood Urea Nitrogen 25 mg/dL (8-24); Bun/Creatinine Ratio 35.2 (12.0-20.0); CO2, Blood 30 mmol/L (21-32); Calcium, Blood 9.4 mg/dL (8.5-10.1); Chloride, Blood 97 mmol/L (98-108); Creatinine, Blood 0.71 mg/dL (0.40-1.00); Glomerular Filtration Rate >60 (60-); Glucose, Blood 339 mg/dL (70-99); Phosphorus, Blood 4.6 mg/dL (2.5-4.9); Sodium, Blood 131 mmol/L (136-145)
--- NOTE | 2021-03-18 06:24 | NUR ---
SHIFT SUMMARY NO ACUTE EVENTS THIS SHIFT. PT ALERT AND ORIENTED X4. ON 5L NC SATS OVER 93%. HR 70'S SR. BP STABLE. IMPULSIVE AT TIMES, TRIES TO GET UP ON OWN TO USE BATHROOM DESPITE BEING HOOKED UP TO O2. FREQUENT URINATION D/T LASIX AND HEAVY FLUID INTAKE. MUMBLED SPEECH AT TIME. WHEEZING IN LUNGS. IN BED SLEEPING WITH CALL ALARM AT SIDE. WILL CONTINUE TO MONITOR UNTIL REPORT GIVEN
--- NOTE | 2021-03-18 07:50 | NUR ---
CARE ASSUMPTION THIS RN ASSUMED CARE AT 0700. PATIENT IS A/OX4. VSS. SPO2 >90% ON 5L NC. PATIENT LUNG SOUNDS VERY COARSE AND WHEEZY, RESPIRATORY CARE IN TO SEE PATIENT FOR A BREATHING TREATMENT THIS AM. PATIENT REPORTS NO CHEST PAIN, PAIN, OR SHORTNESS OF BREATH. CALL LIGHT WITHIN REACH, BED IN LOWEST POSITION, AND BED ALARM ON. WILL CONTINUE TO MONITOR AND PROVIDE CARE.
--- NOTE | 2021-03-18 18:38 | NUR ---
SHIFT SUMMARY PATIENT IS A/OX4. VSS. SPO2>90% ON 6L NC. PATIENT REPORTS NO CHEST PAIN, PAIN, OR SOB. PATIENT AMBULATES INDEPENDENTLY TO AND FROM CHAIR, BED, AND BEDSIDE COMODE, JUST NEEDS A STAND BY ASSIST TO ENSURE PATIENT DOESN'T FALL. NO ACUTE CHANGES DURING THIS SHIFT. CALL LIGHT WITHIN REACH AND BED IN LOWEST POSITION. WILL CONTINUE TO MONITOR AND PROVIDE CARE UNTIL HAND OFF WITH NEXT SHIFT.
--- NOTE | 2021-03-18 23:03 | NUR ---
ASSUMED CARE OF PATIENT AT APPROXIMATELY 1900 FROM VAISHALI Bacon RN. PATIENT ALERT AND ORIENTED X4; FORGETFUL AT TIMES; GARBLED SPEECH AT TIMES. PATIENT DENIES PAIN, NUMBNESS, TINGING, DIZZINESS AND NAUSEA. PATIENT SBA FROM CHAIR TO BED FOR LINES. NSR ON TELE; MEDICAL STATUS; OXYGEN SATURATION ABOVE 90% ON 2LPM VIA NC; TITRATED DOWN FROM 5LPM AT START OF SHIFT. PATIENT HAS CPAP IN ROOM; WORE FOR ABOUT AN HOUR AND STATES SHE DOESNT WANT TO WEAR IT TONIGHT. PIV S/L.
[2021-03-19 04:14] LABS: BASOPHILS ABSOLUTE AUTO 0.03 K/mm3 (0.00-0.23); BASOPHILS PERCENT AUTO 0 % (0-2); EOSINOPHILS ABSOLUTE AUTO 0.01 K/mm3 (0.00-0.68); EOSINOPHILS PERCENT AUTO 0 % (0-6); Hemoglobin 14.6 g/dL (11.5-16.0); IMMATURE GRAN ABSOLUTE AUTO 0.23 K/mm3 (0.00-0.10); IMMATURE GRAN PERCENT AUTO 1 % (0-1); LYMPHOCYTES ABSOLUTE AUTO 0.83 K/mm3 (0.84-5.20); LYMPHOCYTES PERCENT AUTO 5 % (21-46); MONOCYTES ABSOLUTE AUTO 1.19 K/mm3 (0.16-1.47); MONOCYTES PERCENT AUTO 7 % (4-13); Mean Corpuscular HGB 25.5 pg (26.0-34.0); Mean Corpuscular HGB Conc 31.1 g/dL (31.5-36.5); Mean Corpuscular Volume 82 fL (80-100); Mean Platelet Volume 9.9 fL (9.1-12.4); NEUTROPHILS ABSOLUTE AUTO 15.49 K/mm3 (1.96-9.15); NEUTROPHILS PERCENT AUTO 87 % (41-73); Platelet Count 379 K/mm3 (150-400); RDW Coefficient Variation 16.3 % (11.7-14.2); RDW Standard Deviation 48.4 fL (35.1-46.3); Red Blood Cell Count 5.72 M/mm3 (3.80-5.20); White Blood Cell Count 17.78 K/mm3 (4.00-11.30)
[2021-03-19 05:00] LABS: Albumin, Blood 3.3 g/dL (3.4-5.0); Anion Gap 6 mmol/L (6-16); Blood Urea Nitrogen 24 mg/dL (8-24); CO2, Blood 32 mmol/L (21-32); Calcium, Blood 9.7 mg/dL (8.5-10.1); Chloride, Blood 95 mmol/L (98-108); Creatinine, Blood 0.56 mg/dL (0.40-1.00); Glomerular Filtration Rate >60 (60-); Glucose, Blood 319 mg/dL (70-99); Phosphorus, Blood 4.4 mg/dL (2.5-4.9); Potassium, Blood 5.6 mmol/L (3.5-5.5); Sodium, Blood 133 mmol/L (136-145)
--- NOTE | 2021-03-19 06:03 | NUR ---
PATIENT SLEPT ABOUT NINE HOURS LAST NIGHT. PATIENT REFUSED TO WEAR CPAP AND OXYGEN SATURATION DROPS TO 79% FOR SECONDS AND RECOVERS QUICKLY. NO OTHER ACUTE CHANGES TO REPORT.
--- NOTE | 2021-03-19 06:06 | NUR ---
TR BAND DEFLATED AND REMOVED BY 0100. PATIENT SLEPT ABOUT FIVE HOURS BROKEN LAST NIGHT. NO OTHER ACUTE CHANGES TO REPORT.
--- NOTE | 2021-03-19 06:33 | NUR ---
NOTIFIED OF CBG OF 348 AT 0625 BY PCT; CALL PLACED TO DR. HECK; WAITING CALL BACK.
--- NOTE | 2021-03-19 09:00 | NUR ---
CARE ASSUMPTION PATIENT IS A/OX4. VSS. TELE SR. SPO2 >90% ON 2L NC. PATIENT REPORTS NO CHEST PAIN, PAIN, OR SHORTNESS OF BREATH. CALL LIGHT WITHIN REACH AND BED IN LOWEST POSITION. WILL CONTINUE TO MONITOR AND PROVIDE CARE.
[2021-03-19] MEDS ORDERED: ASPI81CH PO (13:08)
[2021-03-19] MEDS ORDERED: FURO40 PO (13:17)
[2021-03-19] MEDS ORDERED: ROBITUSSIN DM PO (13:17)
[2021-03-19] MEDS ORDERED: IPRAT-ALBUT 0.5-3 ML INH (13:18)
[2021-03-19] MEDS ORDERED: MELATONIN5 M1 PO (13:19)
[2021-03-19] MEDS ORDERED: METO25ER PO (13:20)
[2021-03-19] MEDS ORDERED: VISBIOME 112.51 EACH PO (13:21)
[2021-03-19] MEDS ORDERED: ALBU2.5V5 INH (13:22)
[2021-03-19] MEDS ORDERED: CEPH500 PO (13:28)
[2021-03-19] MEDS ORDERED: Deltasone 10 mg10 MG (13:33)
[2021-03-19] MEDS ORDERED: 1/2 NS 250ml250 ML (13:33)
--- NOTE | 2021-03-19 15:20 | NUR ---
DISCHARGE PATIENT RECIEVED DISCHARGE EDUCATION AND INSTRUCTIONS. PATIENT BELONGINGS GATHERED AND WITH PATIENT. PATIENT AWAITING FOR RIDE.
== END 2021-03-19 15:38 | disposition home or self-care (01) | DRG 871 ==
LOC: ER 05:28 → ERHOLD 05:29 → PCU 09:58 → ERHOLD 09:59 → PCU 13:55
PROVIDERS: Emergency Medicine; Family Medicine; ADMIT Internal Medicine
DX: A41.9 Sepsis, unspecified organism (principal); J18.9 Pneumonia, unspecified organism; J96.01 Acute respiratory failure with hypoxia; I50.33 Acute on chronic diastolic (congestive) heart failure; J44.0 Chronic obstructive pulmonary disease with (acute) lower respiratory infection; J44.1 Chronic obstructive pulmonary disease with (acute) exacerbation; E87.1 Hypo-osmolality and hyponatremia; I24.8 Other forms of acute ischemic heart disease; G47.33 Obstructive sleep apnea (adult) (pediatric); I11.0 Hypertensive heart disease with heart failure; F31.9 Bipolar disorder, unspecified; Z20.822 Contact with and (suspected) exposure to COVID-19; E66.01 Morbid (severe) obesity due to excess calories; K64.9 Unspecified hemorrhoids; E03.9 Hypothyroidism, unspecified; F20.9 Schizophrenia, unspecified; E11.65 Type 2 diabetes mellitus with hyperglycemia; D72.829 Elevated white blood cell count, unspecified; T38.0X5A Adverse effect of glucocorticoids and synthetic analogues, initial encounter; I95.9 Hypotension, unspecified; F17.210 Nicotine dependence, cigarettes, uncomplicated; Z88.0 Allergy status to penicillin; Z88.8 Allergy status to other drugs, medicaments and biological substances; Z91.018 Allergy to other foods; Z91.011 Allergy to milk products; Z91.048 Other nonmedicinal substance allergy status; Z91.038 Other insect allergy status; Z90.710 Acquired absence of both cervix and uterus; Z90.49 Acquired absence of other specified parts of digestive tract; Z86.19 Personal history of other infectious and parasitic diseases; I25.2 Old myocardial infarction; Z68.33 Body mass index [BMI] 33.0-33.9, adult; Z71.6 Tobacco abuse counseling; Z98.890 Other specified postprocedural states; Z90.79 Acquired absence of other genital organ(s); Z90.722 Acquired absence of ovaries, bilateral; Z79.84 Long term (current) use of oral hypoglycemic drugs; Z79.899 Other long term (current) drug therapy; Z79.51 Long term (current) use of inhaled steroids
CPT/HCPCS: 0241U; 36415; 71045; 78452; 80053; 80061; 80069; 80178; 82550; 82803; 82947; 83036; 83605; 83880; 84132; 84484; 85025; 85379; 85520; 85610; 87040; 93005; 93010; 93017; 93306; 94640; 94644; 94660; 94664; 94761; 94762; 96365; 96366; 96368; 96375; 96376; 99285-25; A9270; A9500; J0456; J0696; J0706; J1644; J1650; J1815; J1940; J2785; J2930; J7050

== ENCOUNTER 2021-06-10 12:14 | Emergency (ER) | payer OTHER ==
[~2021-06-10] VITALS: Ht 160 cm; Wt 90.7 kg
[~2021-06-10 12:14] MED LIST changes: +1/2 NS 250ml250 ML; +ALBU2.5V5 INH; +ASPI81CH PO; +Deltasone 10 mg10 MG; +FURO40 PO; +IPRAT-ALBUT 0.5-3 ML INH; +MELATONIN5 M1 PO; +METO25ER PO; +ROBITUSSIN DM PO; +VISBIOME 112.51 EACH PO
[2021-06-10 12:49] LABS: Base Excess Venous 11.1 mmol/L; Bicarbonate Venous 31.8 mmol/L (24.0-30.0); PCO2 Venous 65.9 mmHg (38-42); PO2 Venous 33.1 mmHg (38-42); pH Blood Venous 7.35 (7.34-7.37)
[2021-06-10 12:52] LABS: BASOPHILS ABSOLUTE AUTO 0.03 K/mm3 (0.00-0.23); BASOPHILS PERCENT AUTO 0 % (0-2); EOSINOPHILS PERCENT AUTO 2 % (0-6); Hematocrit 43.8 % (33.0-51.0); Hemoglobin 12.9 g/dL (11.5-16.0); IMMATURE GRAN ABSOLUTE AUTO 0.11 K/mm3 (0.00-0.10); IMMATURE GRAN PERCENT AUTO 1 % (0-1); LYMPHOCYTES ABSOLUTE AUTO 1.84 K/mm3 (0.84-5.20); LYMPHOCYTES PERCENT AUTO 16 % (21-46); MONOCYTES ABSOLUTE AUTO 1.06 K/mm3 (0.16-1.47); MONOCYTES PERCENT AUTO 9 % (4-13); Mean Corpuscular HGB 26.6 pg (26.0-34.0); Mean Corpuscular HGB Conc 29.5 g/dL (31.5-36.5); Mean Corpuscular Volume 90 fL (80-100); Mean Platelet Volume 9.4 fL (9.1-12.4); NEUTROPHILS ABSOLUTE AUTO 8.61 K/mm3 (1.96-9.15); NEUTROPHILS PERCENT AUTO 73 % (41-73); Platelet Count 291 K/mm3 (150-400); RDW Coefficient Variation 19.2 % (11.7-14.2); RDW Standard Deviation 63.7 fL (35.1-46.3); Red Blood Cell Count 4.85 M/mm3 (3.80-5.20); White Blood Cell Count 11.85 K/mm3 (4.00-11.30)
[2021-06-10 13:44] LABS: Source, Urine Clean Catch
[2021-06-10 13:47] LABS: Appearance, Urine Clear (Clear); Bilirubin, Urine Neg (Neg); Blood, Urine 3+ (Neg); Color, Urine Yellow (P-Yellow); Glucose Qualitative, Urine Neg (Neg); Ketones, Urine Neg (Neg); Leukocyte Esterase, Urine Neg (Neg); Nitrite, Urine Neg (Neg); Protein, Urine Neg (Neg); Urobilinogen, Urine NORM (Normal); pH, Urine 6.5 (5.0-8.0)
[2021-06-10 13:55] LABS: Squamous Epithelial Cells Rare /hpf (Few); White Blood Cells, Urine 0-2 /hpf (0-5)
[2021-06-10 13:56] LABS: Bacteria Rare /hpf
[2021-06-10 13:57] LABS: Alanine Aminotransfer (ALT/SGP 35 U/L (12-78); Albumin, Blood 3.5 g/dL (3.4-5.0); Albumin/Globulin Ratio 1.1 (0.8-1.8); Alk Phos 97 U/L (50-136); Anion Gap 1 mmol/L (6-16); Aspartate Aminotrans (AST/SGOT 10 U/L (12-37); Bilirubin, Total 0.4 mg/dL (0.1-1.0); Blood Urea Nitrogen 9 mg/dL (8-24); Bun/Creatinine Ratio 15.1 (12.0-20.0); CO2, Blood 36 mmol/L (21-32); Calcium, Blood 8.9 mg/dL (8.5-10.1); Chloride, Blood 101 mmol/L (98-108); Ethanol (Alcohol), Blood, Med <3 mg/dL; Globulin, Blood 3.2 g/dL (2.2-4.0); Glomerular Filtration Rate >60 (60-); Glucose, Blood 134 mg/dL (70-99); Sodium, Blood 138 mmol/L (136-145); Total Protein, Blood 6.7 g/dL (6.4-8.2)
[2021-06-10 14:00] LABS: U Amphetamine Screen Not Detected; U Barbituate Screen Not Detected; U Benzodiazapine Screen Not Detected; U Buprenorphine Screen Not Detected; U Cannabinoids Screen Not Detected; U Cocaine Screen Not Detected; U Methadone Screen Not Detected; U Methamphetamine Screen Not Detected; U Opiates Screen Not Detected; U Oxycodone Screen Not Detected; U Phencyclidine Screen Not Detected; U Propoxyphene Screen Not Detected
[2021-06-10 14:07] LABS: Influenza A, PCR NEGATIVE (NEGATIVE); Influenza B, PCR NEGATIVE (NEGATIVE); Resp Syncytial Virus, PCR NEGATIVE (NEGATIVE); SARS-Cov-2 (COVID-19) PCR, MMC NEGATIVE (NEGATIVE)
[2021-06-10 15:14] LABS: Lithium 0.86 mmol/L (0.60-1.20)
== END 2021-06-10 17:13 | disposition home or self-care (01) ==
LOC: ER 12:14
PROVIDERS: Emergency Medicine
DX: R41.82 Altered mental status, unspecified (principal); G93.41 Metabolic encephalopathy; R40.0 Somnolence; E87.2 Acidosis; R09.02 Hypoxemia; G47.33 Obstructive sleep apnea (adult) (pediatric); E11.9 Type 2 diabetes mellitus without complications; I10 Essential (primary) hypertension; E03.9 Hypothyroidism, unspecified; J44.9 Chronic obstructive pulmonary disease, unspecified; F17.210 Nicotine dependence, cigarettes, uncomplicated; Z88.8 Allergy status to other drugs, medicaments and biological substances; Z91.011 Allergy to milk products; Z88.0 Allergy status to penicillin; Z91.030 Bee allergy status; Z79.899 Other long term (current) drug therapy; Z79.84 Long term (current) use of oral hypoglycemic drugs; Z79.4 Long term (current) use of insulin; Z79.82 Long term (current) use of aspirin; Z79.52 Long term (current) use of systemic steroids
CPT/HCPCS: 0241U; 36415; 51701; 70450; 71045; 80053; 80178; 81001; 82140; 82803; 84443; 85025; 93005; 93010; 99285-25; G0480

== ENCOUNTER 2021-08-08 12:36 | Emergency (ER) | payer OTHER ==
[~2021-08-08] VITALS: Ht 152.4 cm; Wt 87.5 kg
[2021-08-08 14:05] LABS: BASOPHILS ABSOLUTE AUTO 0.04 K/mm3 (0.00-0.23); BASOPHILS PERCENT AUTO 0 % (0-2); EOSINOPHILS ABSOLUTE AUTO 0.23 K/mm3 (0.00-0.68); EOSINOPHILS PERCENT AUTO 2 % (0-6); Hematocrit 45.4 % (33.0-51.0); IMMATURE GRAN ABSOLUTE AUTO 0.05 K/mm3 (0.00-0.10); IMMATURE GRAN PERCENT AUTO 0 % (0-1); LYMPHOCYTES ABSOLUTE AUTO 2.08 K/mm3 (0.84-5.20); LYMPHOCYTES PERCENT AUTO 15 % (21-46); MONOCYTES ABSOLUTE AUTO 1.17 K/mm3 (0.16-1.47); MONOCYTES PERCENT AUTO 9 % (4-13); Mean Corpuscular HGB 26.9 pg (26.0-34.0); Mean Corpuscular HGB Conc 30.8 g/dL (31.5-36.5); Mean Corpuscular Volume 87 fL (80-100); Mean Platelet Volume 10.2 fL (9.1-12.4); NEUTROPHILS PERCENT AUTO 74 % (41-73); Platelet Count 299 K/mm3 (150-400); RDW Coefficient Variation 14.3 % (11.7-14.2); RDW Standard Deviation 45.8 fL (35.1-46.3); Red Blood Cell Count 5.21 M/mm3 (3.80-5.20); White Blood Cell Count 13.57 K/mm3 (4.00-11.30)
[2021-08-08 14:25] LABS: Albumin, Blood 3.5 g/dL (3.4-5.0); Bilirubin, Total 0.2 mg/dL (0.1-1.0); Bun/Creatinine Ratio 9.6 (12.0-20.0); Calcium, Blood 9.7 mg/dL (8.5-10.1); Creatinine, Blood 0.52 mg/dL (0.40-1.00); Globulin, Blood 3.6 g/dL (2.2-4.0); Total Protein, Blood 7.1 g/dL (6.4-8.2)
[2021-08-08 16:04] LABS: Source, Urine Clean Catch
[2021-08-08 16:15] LABS: Appearance, Urine Clear (Clear); Bilirubin, Urine Neg (Neg); Blood, Urine Neg (Neg); Color, Urine Yellow (P-Yellow); Glucose Qualitative, Urine Neg (Neg); Ketones, Urine Neg (Neg); Leukocyte Esterase, Urine Neg (Neg); Nitrite, Urine Neg (Neg); Protein, Urine Neg (Neg); Urobilinogen, Urine NORM (Normal)
[2021-08-08] MEDS ORDERED: Cipro500 MG PO (16:54)
[2021-08-08] MEDS ORDERED: Flagyl500 MG PO (16:54)
== END 2021-08-08 17:10 | disposition home or self-care (01) ==
LOC: ER 12:36
PROVIDERS: Physician Assistant
DX: K57.92 Diverticulitis of intestine, part unspecified, without perforation or abscess without bleeding (principal); D72.829 Elevated white blood cell count, unspecified; I10 Essential (primary) hypertension; E11.9 Type 2 diabetes mellitus without complications; J45.909 Unspecified asthma, uncomplicated; E03.9 Hypothyroidism, unspecified; F31.9 Bipolar disorder, unspecified; F17.290 Nicotine dependence, other tobacco product, uncomplicated; Z88.8 Allergy status to other drugs, medicaments and biological substances; Z88.0 Allergy status to penicillin; Z91.038 Other insect allergy status; Z91.011 Allergy to milk products; Z79.899 Other long term (current) drug therapy; Z79.4 Long term (current) use of insulin
CPT/HCPCS: 74176; 80053; 81003; 83690; 85025

== ENCOUNTER 2022-02-18 22:05 | Emergency (ER) | payer OTHER ==
[~2022-02-18] VITALS: Ht 152.4 cm; Wt 88.5 kg
[~2022-02-18 22:05] MED LIST changes: +Cipro500 MG PO; +Flagyl500 MG PO
== END 2022-02-19 01:22 | disposition home or self-care (01) ==
LOC: ER 22:05
DX: L40.9 Psoriasis, unspecified (principal); B37.2 Candidiasis of skin and nail; E11.9 Type 2 diabetes mellitus without complications; E03.9 Hypothyroidism, unspecified; I10 Essential (primary) hypertension; J45.909 Unspecified asthma, uncomplicated; F17.210 Nicotine dependence, cigarettes, uncomplicated; Z88.8 Allergy status to other drugs, medicaments and biological substances; Z91.038 Other insect allergy status; Z91.011 Allergy to milk products; Z88.0 Allergy status to penicillin; Z91.018 Allergy to other foods; Z79.899 Other long term (current) drug therapy; Z79.4 Long term (current) use of insulin; Z79.82 Long term (current) use of aspirin
CPT/HCPCS: 99283

== ENCOUNTER 2022-04-07 09:53 | Inpatient (IN) | payer OTHER ==
[~2022-04-07] VITALS: Ht 154.9 cm; Wt 90.7 kg
[~2022-04-07 09:53] MED LIST changes: -LITHIUM CARBON PO
[2022-04-07 10:32] LABS: Source, Urine Clean Catch
[2022-04-07 10:37] LABS: Bilirubin, Urine Neg (Neg); Blood, Urine Neg (Neg); Glucose Qualitative, Urine Neg (Neg); Ketones, Urine Neg (Neg); Leukocyte Esterase, Urine Neg (Neg); Nitrite, Urine Neg (Neg); Protein, Urine Neg (Neg); Specific Gravity, Urine 1.015 (1.003-1.022); Urobilinogen, Urine NORM (Normal)
[2022-04-07] MEDS ORDERED: ALLEGRA ALLERG180 MG PO (10:37)
[2022-04-07] MEDS ORDERED: LISI20 PO (10:39)
[2022-04-07 10:40] LABS: BASOPHILS ABSOLUTE AUTO 0.04 K/mm3 (0.00-0.23); BASOPHILS PERCENT AUTO 0 % (0-2); EOSINOPHILS ABSOLUTE AUTO 0.19 K/mm3 (0.00-0.68); EOSINOPHILS PERCENT AUTO 1 % (0-6); Hematocrit 44.4 % (33.0-51.0); Hemoglobin 14.2 g/dL (11.5-16.0); IMMATURE GRAN ABSOLUTE AUTO 0.11 K/mm3 (0.00-0.10); IMMATURE GRAN PERCENT AUTO 1 % (0-1); LYMPHOCYTES PERCENT AUTO 15 % (21-46); MONOCYTES ABSOLUTE AUTO 0.83 K/mm3 (0.16-1.47); MONOCYTES PERCENT AUTO 6 % (4-13); Mean Corpuscular HGB 27.5 pg (26.0-34.0); Mean Corpuscular Volume 86 fL (80-100); Mean Platelet Volume 9.9 fL (9.1-12.4); NEUTROPHILS PERCENT AUTO 77 % (41-73); Platelet Count 335 K/mm3 (150-400); RDW Coefficient Variation 15.2 % (11.7-14.2); Red Blood Cell Count 5.16 M/mm3 (3.80-5.20); White Blood Cell Count 14.27 K/mm3 (4.00-11.30)
[2022-04-07 10:44] LABS: Appearance, Urine Clear (Clear); Color, Urine Yellow (P-Yellow)
[2022-04-07 11:02] LABS: Albumin, Blood 3.6 g/dL (3.4-5.0); Albumin/Globulin Ratio 1.1 (0.8-1.8); Bilirubin, Total 0.3 mg/dL (0.1-1.0); Bun/Creatinine Ratio 13.7 (12.0-20.0); Calcium, Blood 9.5 mg/dL (8.5-10.1); Creatinine, Blood 0.59 mg/dL (0.40-1.00); Globulin, Blood 3.4 g/dL (2.2-4.0); Potassium, Blood 3.9 mmol/L (3.5-5.5)
[2022-04-07 11:14] LABS: Influenza A, PCR NEGATIVE (NEGATIVE); Influenza B, PCR NEGATIVE (NEGATIVE); Resp Syncytial Virus, PCR NEGATIVE (NEGATIVE); SARS-Cov-2 (COVID-19) PCR, MMC NEGATIVE (NEGATIVE)
[2022-04-07 14:29] LABS: Anti-Xa UFH, PHA Monitoring <0.10 IU/mL; International Normalized Ratio 0.98; Prothrombin Time Results 10.3 Sec (9.7-11.5)
[2022-04-07 14:40] LABS: Lithium 0.25 mmol/L (0.60-1.20)
--- NOTE | 2022-04-07 22:15 | NUR ---
Assumed care of patient after receiving RN to RN report from Amy Lizarraga. Dr. Parker is in with patient at this time and is discussing patient diagnosis of NSTEMI. Dr. Parker has made a recommendation to Ms. Vanessa for coronary angiography to determine presence and severity of any coronary artery disease and if there is a need for percutaneous coronary intervention. Ms. Galindo states that she does not want to have the angiogram done at this time. I asked about her hesitation and she stated she thinks that it is too risky. I spent some time with her answering her questions and discussing the frequency with which the procedure is done with zero and/or minimal complications. I reiterated the benefits of the procedure itself. Ms. Vanessa has agreed to reconsider having the angiogram done and I will pass this information on to the receiving nurse in the morning. It is my understanding dulce a colleague of Dr. Parker's will revisit this subject with the patient tomorrow. Heparin is infusing at 15 units/kg/hour as ordered. Patient is being moved from PCU 12 to PCU 3 for better monitoring due to her impulsivity and risk for falls. Will continue to monitor.
--- NOTE | 2022-04-07 22:18 | NUR ---
ASSUMED PT CARE FORM ANISHA SILVA ON . PT IS ALERT, ORIENTED TO SELF AND DATE. UNSURE WHY SHE IS AT HOSPITAL. ABLE TO FOLLOW DIRECTIONS BUT FORGETFUL OF INSTRUCTIONS GIVEN. IMPULSIVE, STANDING AT BEDSIDE, NEEDS FREQUENT REMINDS TO CALL BEFORE GETTING OUT OF BED. PT HAS DENIED ANY CHEST PAIN OR SOB. O2 SATS > 92% ON 1 LPM, PT STATES SHE DOES NOT USE O2 AT HOME, RECEIVED IN REPORTS PT USES 4 LPM AT HOME. WILL MONITOR. HR IS SR IN 90'S. HEPRIN GTT INFUSING AT 15 UNITS/KG/HR. REPORTED OFF TO GLADYS BLACKMAN RN.
--- NOTE | 2022-04-07 23:08 | NUR ---
Ms. Vanessa appears to be resting comfortably in the recliner (she prefers this to sleeping in the bed as she sleeps in a recliner at home), 4 lpm per nasal cannula in place, continuous pulse-ox monitor connected, heparin drip infusing at 15 units/kg/hour, chair alarm activated, call light within reach.
[2022-04-08] MEDS ORDERED: PALI3TAB PO (00:31)
[2022-04-08] MEDS ORDERED: VITAMIN D3 PO (00:43)
[2022-04-08] MEDS ORDERED: FISH OIL PO (00:44)
[2022-04-08] MEDS ORDERED: HYDROCORTISONE30 GM TOP (00:49)
[2022-04-08] MEDS ORDERED: SYMBICORT 160-4.6 GM INH (00:57)
[2022-04-08] MEDS ORDERED: LORA.5 PO (01:05)
[2022-04-08] MEDS ORDERED: IBUP600 PO (01:06)
[2022-04-08 05:10] LABS: Hematocrit 42.7 % (33.0-51.0); Mean Corpuscular HGB Conc 30.4 g/dL (31.5-36.5); Mean Corpuscular Volume 89 fL (80-100); Mean Platelet Volume 9.9 fL (9.1-12.4); Platelet Count 291 K/mm3 (150-400); RDW Coefficient Variation 15.4 % (11.7-14.2); Red Blood Cell Count 4.81 M/mm3 (3.80-5.20); White Blood Cell Count 13.78 K/mm3 (4.00-11.30)
[2022-04-08 05:37] LABS: Bun/Creatinine Ratio 20.3 (12.0-20.0); Calcium, Blood 9.2 mg/dL (8.5-10.1); Creatinine, Blood 0.74 mg/dL (0.40-1.00); Magnesium, Blood 2.2 mg/dL (1.6-2.4); Potassium, Blood 4.1 mmol/L (3.5-5.5)
--- NOTE | 2022-04-08 06:36 | NUR ---
MS. JONES SLEPT THROUGHOUT MOST OF THE NIGHT ONCE TRANSFERRED TO PCU 3 IN THE 2200 HOUR. SHE WAS DEPENDENT UPON 4 - 5 LPM OF OXYGEN PER NASAL CANNULA AND DID REMOVE HER NASAL CANNULA MULTIPLE TIMES IN THE NIGHT. THE NASAL CANNUAL WAS IN PLACE DUE TO PATIENT REFUSING APPLICATION OF THE CPAP DESPITE EDUCATION REGARDING ITS BENEFIT TO HER, WHICH WAS PROVIDED TO HER BY BOTH THIS RN AND RT DON. WHILE SLEEPING, SHE DID HAVE SOME EPISODES OF APNEA WHEREBY HHER OXYEN SATURATION LEVEL DROPPED INT THE 60S - 80S PERCENTILE RANGE. AT APPROXIMATELY 03:10, I CAME TO PT'S ROOM DUE TO ALARM SOUNDING. DON WITH RESPIRATORY CARE WAS SETTING UP A CPAP MACHINE PER REQUEST RECEIVED FROM OSTEOPATHIC MEDICINE TEACHER JAISON AFTER AN EPISODE OF APNEA WHERE THE SpO2 DROPPED INTO THE 60S AND PATIENT WAS DIFFICULT TO AROUSE. DESPITE PATIENT'S REFUSAL OF CPAP EARLIER IN THE NIGHT, DON AND I ATTEMPTED TO PLACE THE CPAP MAP ON PT AND SHE IMMEDIATELY PUSHED IT AWAY, WAS INSISTENT THAT SHE WILL NOT WEAR THE CPAP MASK, AND REPEATEDLY MOVED HER HEAD FROM SIDE TO SIDE TO AVOID PLACEMENT OF THE MASK. BOTH VERBAL AND WRITTEN DOCUMENTATION OF REFUSAL OF CPAP WAS OBTAINED AT THAT TIME (SEE EMR ORDER AND PAPER CHART). MS. GARAY IS NOT COMPLIANT WITH USE OF HER CPAP AT HOME, EITHER. PATIENT'S SERUM LITHIUM LEVEL WAS LOW UPON ADMISSION. WILL PASS ON TO DAY SHIFT RN TO REQUEST FOR ATTENDING PHYSICIAN TO REVIEW CURRENT ORDER FOR 900 MG OF LITHIUM AT BEDTIME. PATIENT'S HOME DOSE, PER MEDICATION LIST PROVIDED (SEE PAPER CHART), IS 450 MG AT BEDTIME.
--- NOTE | 2022-04-08 10:33 | NUR ---
ASSUMPTION OF CARE: NEURO: PATIENT IS ALERT, BUT VERY SLEEPY AND AROUSABLE TO VERBAL AND TOUCH, COOPERATIVE WITH CARE AT THIS TIME, WAS VERY IMPULSIVE PREVIOUS SHIFT, COULD HAVE BEEN FROM DISCOMFORT WITH POSITIONING, IMPROVED WITH RECLINER, CHAIR ALARM IN PLACE DUE TO SAFETY AND IMPULSIVENESS. PULM: PATIENT IS VERY NON-COMPLIANT WITH CPAP AND IS CURRENLTY ON 6L VIA NC TO MAINTAIN SPO2>87%. RT AWARE AWAITING PROVIDER AND WILL INFORM. INCREASED RR OF 18-24 CARDIAC: NITRO PATCH IN PLACE. NORMOTENSIVE AT THIS TIME. DENIES CHEST PAIN/PRESSURE. WILL CONTINUE TO MONITOR BLOOD PRESSURES HAVE BEEN LOWER IN THE PAST. GI/: PATIENT WITH AN EPISODE OF URINARY INCONTINENCE, TYPICALLY IS CONTINENT. NO CONCERNS PATIENT WAS AWARE AND WAS ABLE TO MAKE NEED KNOWN TO THIS RN TO NEED CHANGED. PATIENT WITH 1 P ASSIST BY PCT TO BSC. CONCERNS: NIGHT RN WAS CONCERNED ABOUT: DOSING OF MEDICATIONS WILL CALL PHARMACY ANDCONFIRM. NIGHT LITHIUM MAY BE DOUBLE THE DOSE SHE IS RECIEVING, AND PATIENT IS VERY SLEEPY DUE TO THIS. NIGHT RN WAS ABLE TO SPEAK WITH PATIENT IN [facility] TO POTENTIAL NEED FOR CATH, PATIENT SEEMED MORE RECEPTIVE WHEN EDUCATED, HOWEVER, THIS RN UNABLE TO ASSESS AT THIS TIME DUE TO BEING SO SLEEPY. WILL CONTINUE TO MONITOR UNTIL SHIFT CHANGE
--- NOTE | 2022-04-08 18:13 | NUR ---
END OF SHIFT: PATIENT CONTINUE TO BE NONCOMPLIANT WITH BOTH THE NC AND CPAP/BIPAP. PATIENT WITHOUT O2 MAINTENENCE SPO2 79-83% MULTIPEL ENTITIES INCLUDING CHARGE, ANGIOGRAPHY TECHNOLOGIST, THIS RN, AND RESPIRATORY THERAPY EDUCATED PATIENT PATIENT ABLE TO MAKE OWN DECISION PER CHIEF CONTROLLER TOWER AT RESIDENTIAL. PATIENT EDUCATED ON CATH AND DENIES NEED. PATIENT REFUSES CARE MOST OF THE TIME, DEEP CONVERSATION ABOUT CODE STATUS AND PATIENT HAS ENDORSED NOT WANTING CPR OR INTUBATION, CALL WAS MADE TO PROVIDER THIS EVENING TO SEE IF WE COULD CHANGE. AWAITING CALL, WILL INFORM NIGHT RN. LOADING DOSE OF PLAVIX GIVEN. POTENTIAL PLAN FOR DISCHARGE AFTER 48 HOURS OF ANTICOAG. LOVENOX INSTEAD OF HEPARIN GTT WEIGHT BASED BID. NO FURTHER CONCERNS AT THIS TIME.
--- NOTE | 2022-04-08 19:30 | NUR ---
Call to resident MD Pancho Mcintosh regarding patient request for change of code status from full code to DNR/DNI. Ms. Vanessa made her wishes known to day shift rn Riaz and confirmed her same wishes to me in a conversation during my shift asssessment. Dr. Mcintosh to update code status per patient wishes. Also of note, Ms. Vanessa continues to remove her nasal cannula despite repeated attempts to educate her by multiple staff members throughout the day and by this RN overnight last night and again this evening. Ms. Vanessa also will disconnect her pulse-oximeter to prevent it from alarming, per her own admission. I advised her that the monitor is alarming because her oxygen levels drop below therapeutic level, into the 70s-80s percentile range, to let us know that she is not maintaining her own oxygen needs without the supplemntal oxygen. Patient states she understands the information I have provided and then removed her oxygen and pulse-oximeter again within less than 2 minutes after I left her room.
--- NOTE | 2022-04-09 04:54 | NUR ---
PATIENT REFUSING TO KEEP PULSE OXIMETER IN PLACE, REPEATEDLY DISONNECTING THE MONITOR CORD FROM THE PULSE OXIMETER OR TOTALLY RIPPING OFF THE OXIMETER ITSELF. SHE REFUSES TO WEAR THE CPAP, REPORTS THAT SHE DOES NOT WEAR THE CPAP AT HOME FOR LONGER THAN A FEW MINUTES AT A TIME AND RARELY WHILE SLEEPING, AND THAT SHE DOESN'T WEAR OXYGEN UNLESS "I THINK I REALLY NEED IT." AT THIS TIME, SHE IS REFUSING TO HAVE THE PULSE OXIMETER PLACED BACK ON HER FINGER AND THE DECISION HAS BEENMADE TO DOCUMENT THIS REFUSAL ONCE AGAIN AND TO REMOVE THE CONTINUOUS SpO2 MONITORING SINCE SHE IS NOT USING THE CPAP AND THEE HAVE BEEN LIKLEY GREATER THAN A DOZEN REPLACEMENTS OF DAMAGED PULSE OXIMETERS DURING THE COURSE OF THE NIGHT. MS. JONES DISAGREES, DESPITE THE MULTIPLE ALARMS AND SHOWING HER THE READINGS ON THE MONITOR OF SpO2 IN THE 70S AND LOW 80S WHEN SHE TAKES HER OXYGEN OFF WHILE SLEEPING, THAT SHE NEEDS TO USE SUPPLEMENTAL OXYGEN WHILE SLEEPING AND SOMETIMES WHILE AWAKE DEPENDING UPON HER LEVEL OF EXERTION. MULTIPLE ATTEMPTS OF PROVIDING THIS EDUCATION HAS HAD NO IMPACT. I DISCUSSED ALL OF THE ABOVE WITH MY RUBBER GOODS INSPECTOR JAISON.
--- NOTE | 2022-04-09 09:39 | NUR ---
ASSUMPTION OF CARE: PATIENT IN NO SIGN OF ACUTE DISTRESS, PLEASANT, BUT REFUSING ALMOST ALL CARE, DOES NOT WEAR CPAP, OR O2 SUPPLEMENTATION AVOID OF BEING IN THE LOW 70'S AT TIMES. PATIENT EDUCATED STILL REFUSES MULTIPLE TIMES. PATIENT DENIES CHEST PAIN. STILL IMPULSIVE. CAN MAKE NEEDS KNOWN, BED/CHAIR ALARM ON DEPENDING ON POSITIONING. PATIENT IS SLEEPY IN THE AM DUE TO NIGHT MENTAL HEALTH MEDICATIONS. PATIENT BLOOD PRESSURE IS SLIGHTLY SOFTER, WHICH IS DIFFERENT FROM PREVIOUS BASELINE BEFORE ADMISSION. THIS WAS ENDORSED BY SENIOR COURTROOM CLERK AT [facility]. WILL PLACE CALL AND TOUCH BASE WITH SENIOR COURTROOM CLERK DUE TO THE SEVERITY OF PATIENTS REFUSALS AND TRAJECTORY WITHOUT PROPER CARE AND OXYGENATION. PATIENT WILL HAVE BEEN 48 ON ANTICOAGUALANTS AT 1500. PATIENT WILL HAVE NO PROBLEM DISCHARGING, DUE TO THE FACT SHE IS REFUSING ALL CARE THAT COULD IMPROVE HER CURRENT SITUATION. NIGHT RN MADE MULTIPLE ATTEMPTS TO EDUCATE ALONG WITH MY SELF IN [facility] TO NEED FOR CARE. PATIENT UNITERESTED AND UNRECEPTIVE. WILL CONTINUE TO MONITOR UNTIL SHIFT CHANGE.
[2022-04-09] MEDS ORDERED: CLOP75 PO (16:21)
[2022-04-09] MEDS ORDERED: METO25ER PO (16:21)
--- NOTE | 2022-04-09 17:32 | NUR ---
DISHCARGE SUMMARY: PCT AND CLINICAL SERVICES ASSISTANT REDIED PATIENT DISHCARGE INSTRUCTION GIVEN TO CAREGIVER, ALREADY GAVE INSTRUCTIONS TO PATIENT. NEITHER HAD QUESTIONS CONCERNS OR COMMENTS THAT WERE NOT ANSWERED, ADDITIONALLY PRIOR TO DISCHARGE [facility] AND PROCESS DEVELOPMENT ENGINEER IN [facility] TO PATIENT TRAJECTORY AND PLAN OF CARE. PATIENT HAS BEEN COOPERATIVE WITH MEDICATIONS ONLY, STILL REFUSING OXYGEN MOST OF THE DAY. BED ALARM AND CHAIR ALARM WERE TRIGGERED OFTEN. PATIENT HAD INCREASE TO STABILITY THROUGH THE DAY LESS OF A FALL RISK. PATIENT STILL DISREGAURDING EATING TECHNIQUES. TELE MONITOR AND SPO2.
== END 2022-04-09 16:45 | DRG 280 ==
LOC: ER 09:53 → PCU 13:48
PROVIDERS: Nurse Practitioner Acute Care; Physician Assistant; ADMIT Family Medicine
PROC: 5A09357 Assistance with Respiratory Ventilation, Less than 24 Consecutive Hours, Continuous Positive Airway Pressure (ICD-10-PCS; principal; 2022-04-08)
DX: I21.4 Non-ST elevation (NSTEMI) myocardial infarction (principal); J96.02 Acute respiratory failure with hypercapnia; J96.21 Acute and chronic respiratory failure with hypoxia; I50.32 Chronic diastolic (congestive) heart failure; I25.10 Atherosclerotic heart disease of native coronary artery without angina pectoris; J44.9 Chronic obstructive pulmonary disease, unspecified; E03.9 Hypothyroidism, unspecified; E66.01 Morbid (severe) obesity due to excess calories; G47.33 Obstructive sleep apnea (adult) (pediatric); F20.9 Schizophrenia, unspecified; B19.20 Unspecified viral hepatitis C without hepatic coma; E11.9 Type 2 diabetes mellitus without complications; I11.0 Hypertensive heart disease with heart failure; F17.210 Nicotine dependence, cigarettes, uncomplicated; F31.9 Bipolar disorder, unspecified; R10.9 Unspecified abdominal pain; D72.829 Elevated white blood cell count, unspecified; Z20.822 Contact with and (suspected) exposure to COVID-19; Z88.8 Allergy status to other drugs, medicaments and biological substances; Z88.0 Allergy status to penicillin; Z91.011 Allergy to milk products; Z91.038 Other insect allergy status; Z79.899 Other long term (current) drug therapy; Z79.02 Long term (current) use of antithrombotics/antiplatelets; Z99.81 Dependence on supplemental oxygen; Z79.84 Long term (current) use of oral hypoglycemic drugs; Z79.52 Long term (current) use of systemic steroids; Z79.4 Long term (current) use of insulin; Z79.82 Long term (current) use of aspirin; Z79.01 Long term (current) use of anticoagulants; Z79.51 Long term (current) use of inhaled steroids; Z79.2 Long term (current) use of antibiotics; Z90.710 Acquired absence of both cervix and uterus; Z68.37 Body mass index [BMI] 37.0-37.9, adult; Z90.49 Acquired absence of other specified parts of digestive tract; Z79.811 Long term (current) use of aromatase inhibitors
CPT/HCPCS: 0241U; 36415; 71046; 80048; 80053; 80178; 81003; 82947; 83690; 83735; 83880; 84484; 85025; 85027; 85520; 85610; 85730; 93005; 93010; 94640; 94660; 94664; 94762; 96365; 96366; 99285-25; A9270; J1644; J1650; J1815; J2405

== ENCOUNTER 2022-09-16 12:31 | Emergency (ER) | payer OTHER ==
[~2022-09-16] VITALS: Ht 152.4 cm; Wt 90.7 kg
[~2022-09-16 12:31] MED LIST changes: +ALLEGRA ALLERG180 MG PO; +CLOP75 PO; +DOXY100 PO; +FISH OIL PO; +HYDROCORTISONE30 GM TOP; +PALI3TAB PO; +SYMBICORT 160-4.6 GM INH; +VITAMIN D3 PO
[2022-09-16 13:28] LABS: BASOPHILS ABSOLUTE AUTO 0.04 K/mm3 (0.00-0.23); BASOPHILS PERCENT AUTO 0 % (0-2); EOSINOPHILS ABSOLUTE AUTO 0.17 K/mm3 (0.00-0.68); EOSINOPHILS PERCENT AUTO 1 % (0-6); Hematocrit 41.7 % (33.0-51.0); Hemoglobin 13.1 g/dL (11.5-16.0); IMMATURE GRAN ABSOLUTE AUTO 0.08 K/mm3 (0.00-0.10); IMMATURE GRAN PERCENT AUTO 1 % (0-1); LYMPHOCYTES ABSOLUTE AUTO 1.94 K/mm3 (0.84-5.20); LYMPHOCYTES PERCENT AUTO 15 % (21-46); MONOCYTES ABSOLUTE AUTO 0.95 K/mm3 (0.16-1.47); MONOCYTES PERCENT AUTO 8 % (4-13); Mean Corpuscular HGB 27.6 pg (26.0-34.0); Mean Corpuscular HGB Conc 31.4 g/dL (31.5-36.5); Mean Corpuscular Volume 88 fL (80-100); Mean Platelet Volume 9.9 fL (9.1-12.4); NEUTROPHILS ABSOLUTE AUTO 9.54 K/mm3 (1.96-9.15); NEUTROPHILS PERCENT AUTO 75 % (41-73); Platelet Count 276 K/mm3 (150-400); RDW Coefficient Variation 15.1 % (11.7-14.2); RDW Standard Deviation 48.7 fL (35.1-46.3); Red Blood Cell Count 4.74 M/mm3 (3.80-5.20); White Blood Cell Count 12.72 K/mm3 (4.00-11.30)
[2022-09-16 13:46] LABS: Albumin, Blood 3.3 g/dL (3.4-5.0); Albumin/Globulin Ratio 0.9 (0.8-1.8); Bilirubin, Total 0.2 mg/dL (0.1-1.0); Bun/Creatinine Ratio 10.3 (12.0-20.0); Calcium, Blood 8.8 mg/dL (8.5-10.1); Creatinine, Blood 0.68 mg/dL (0.40-1.00); Globulin, Blood 3.6 g/dL (2.2-4.0); Total Protein, Blood 6.9 g/dL (6.4-8.2)
[2022-09-16] MEDS ORDERED: Prednisone20 MG PO (16:06)
[2022-09-16 17:12] VITALS: BP 130/74
== END 2022-09-16 17:27 | disposition home or self-care (01) ==
LOC: ER 12:31
PROVIDERS: Student in an Organized Health Care Education/Training Program
DX: J44.1 Chronic obstructive pulmonary disease with (acute) exacerbation (principal); F17.210 Nicotine dependence, cigarettes, uncomplicated; E11.9 Type 2 diabetes mellitus without complications; G47.33 Obstructive sleep apnea (adult) (pediatric); I10 Essential (primary) hypertension; J45.909 Unspecified asthma, uncomplicated; Z86.19 Personal history of other infectious and parasitic diseases; Z79.02 Long term (current) use of antithrombotics/antiplatelets; Z79.890 Hormone replacement therapy; Z79.52 Long term (current) use of systemic steroids; Z79.4 Long term (current) use of insulin; Z79.82 Long term (current) use of aspirin; Z79.899 Other long term (current) drug therapy; Z88.0 Allergy status to penicillin; Z91.011 Allergy to milk products; Z79.01 Long term (current) use of anticoagulants
CPT/HCPCS: 71046; 80053; 83880; 84484; 85025; 93005; 93010; 94644; 94664; 96374; 99284-25; J2930

== ENCOUNTER 2022-11-03 11:39 | Observation (INO) | payer OTHER ==
[~2022-11-03] VITALS: Ht 152.4 cm; Wt 92.0 kg
[~2022-11-03 11:39] MED LIST changes: +Prednisone20 MG PO
[2022-11-03 12:23] LABS: BASOPHILS ABSOLUTE AUTO 0.03 K/mm3 (0.00-0.23); BASOPHILS PERCENT AUTO 0 % (0-2); EOSINOPHILS ABSOLUTE AUTO 0.24 K/mm3 (0.00-0.68); EOSINOPHILS PERCENT AUTO 2 % (0-6); Hematocrit 42.8 % (33.0-51.0); Hemoglobin 13.5 g/dL (11.5-16.0); IMMATURE GRAN ABSOLUTE AUTO 0.07 K/mm3 (0.00-0.10); IMMATURE GRAN PERCENT AUTO 1 % (0-1); LYMPHOCYTES ABSOLUTE AUTO 2.18 K/mm3 (0.84-5.20); LYMPHOCYTES PERCENT AUTO 16 % (21-46); MONOCYTES ABSOLUTE AUTO 1.05 K/mm3 (0.16-1.47); MONOCYTES PERCENT AUTO 8 % (4-13); Mean Corpuscular HGB 27.2 pg (26.0-34.0); Mean Corpuscular HGB Conc 31.5 g/dL (31.5-36.5); Mean Corpuscular Volume 86 fL (80-100); Mean Platelet Volume 9.6 fL (9.1-12.4); NEUTROPHILS ABSOLUTE AUTO 9.75 K/mm3 (1.96-9.15); NEUTROPHILS PERCENT AUTO 73 % (41-73); Platelet Count 291 K/mm3 (150-400); RDW Coefficient Variation 15.1 % (11.7-14.2); RDW Standard Deviation 47.3 fL (35.1-46.3); Red Blood Cell Count 4.97 M/mm3 (3.80-5.20); White Blood Cell Count 13.32 K/mm3 (4.00-11.30)
[2022-11-03 13:22] LABS: Albumin, Blood 3.6 g/dL (3.4-5.0); Bilirubin, Total 0.4 mg/dL (0.1-1.0); Bun/Creatinine Ratio 19.7 (12.0-20.0); Creatinine, Blood 0.56 mg/dL (0.40-1.00); Globulin, Blood 3.6 g/dL (2.2-4.0); Potassium, Blood 4.2 mmol/L (3.5-5.5); Total Protein, Blood 7.2 g/dL (6.4-8.2)
[2022-11-03] MEDS ORDERED: SYMBICORT 160-4.6 GM (18:29)
[2022-11-03] MEDS ORDERED: BETA.05TCA (18:31)
[2022-11-03] MEDS ORDERED: ALEVAZOL56.7 G1 TOP (18:31)
[2022-11-03 20:20] VITALS: BP 121/73
--- NOTE | 2022-11-03 21:19 | NUR ---
ADMISSION ASSESSMENT PT REFUSED TO ANSWER HOME SAFETY OR INTIMATE PARTNER VIOLENCE QUESTIONS. HAD TO ENTER "NO" IN REQUIRED MUNOZ TO MOVE TO NEXT SECTION OF ASSESSMENT.
[2022-11-04 03:09] VITALS: BP 126/83
--- NOTE | 2022-11-04 04:06 | NUR ---
SHIFT SUMMARY PT ER ADMIT THIS SHIFT FOR PNA ARRIVED TO THE ER WITH COMPLAINTS OF CHEST PAIN, TROPONIN'S ARE WNL. PT STARTED ON ANTIBIOTICS IN THE ER FOR HER PNA. 4.5L VIA NC IN PLACE AND PT MAINTAINING SATS. LUNGS DIMINISHED, SOB WITH EXERTION. TELE IN PLACE, PT NSR. PT HAS HAS BEEN AMBULATING INDEPENDENTLY IN ROOM. VITALS ARE STABLE. PT CEDS SMOKER, NICOTINE PATCH ORDERED AND IN PLACE. PT DENIES HAVING IGNITION SOURCES. BED IN LOWEST POSITION, CALL LIGHT WITHIN REACH.
[2022-11-04 06:42] LABS: BASOPHILS ABSOLUTE AUTO 0.03 K/mm3 (0.00-0.23); BASOPHILS PERCENT AUTO 0 % (0-2); EOSINOPHILS ABSOLUTE AUTO 0.07 K/mm3 (0.00-0.68); EOSINOPHILS PERCENT AUTO 1 % (0-6); Hematocrit 42.1 % (33.0-51.0); Hemoglobin 13.3 g/dL (11.5-16.0); IMMATURE GRAN ABSOLUTE AUTO 0.09 K/mm3 (0.00-0.10); IMMATURE GRAN PERCENT AUTO 1 % (0-1); LYMPHOCYTES ABSOLUTE AUTO 1.66 K/mm3 (0.84-5.20); LYMPHOCYTES PERCENT AUTO 11 % (21-46); MONOCYTES ABSOLUTE AUTO 0.99 K/mm3 (0.16-1.47); MONOCYTES PERCENT AUTO 6 % (4-13); Mean Corpuscular HGB Conc 31.6 g/dL (31.5-36.5); Mean Corpuscular Volume 86 fL (80-100); Mean Platelet Volume 9.9 fL (9.1-12.4); NEUTROPHILS PERCENT AUTO 82 % (41-73); Platelet Count 289 K/mm3 (150-400); RDW Coefficient Variation 14.9 % (11.7-14.2); RDW Standard Deviation 46.2 fL (35.1-46.3); Red Blood Cell Count 4.92 M/mm3 (3.80-5.20); White Blood Cell Count 15.54 K/mm3 (4.00-11.30)
[2022-11-04 07:09] LABS: Albumin, Blood 3.4 g/dL (3.4-5.0); Bilirubin, Total 0.2 mg/dL (0.1-1.0); Bun/Creatinine Ratio 27.8 (12.0-20.0); Calcium, Blood 9.4 mg/dL (8.5-10.1); Creatinine, Blood 0.61 mg/dL (0.40-1.00); Globulin, Blood 3.4 g/dL (2.2-4.0); Potassium, Blood 4.6 mmol/L (3.5-5.5); Total Protein, Blood 6.8 g/dL (6.4-8.2)
[2022-11-04 07:45] VITALS: BP 121/57
[2022-11-04] MEDS ORDERED: PRED20 PO (11:46)
[2022-11-04] MEDS ORDERED: ALBU90OI INH (11:47)
[2022-11-04] MEDS ORDERED: AZIT500 PO (11:48)
--- NOTE | 2022-11-04 15:12 | NUR ---
DISCHARGE SUMMARY PT A&OX4, VSS/4L-BASELINE, BRETT PO, VOIDING, AMB IND/DRESSED SELF, DENIES PAIN, IV DC'D. LEFT FLOOR VIA WC WITH ALL PERSONAL POSSESSIONS INCLUDING DC PACKET, TO GO HOME WITH ELDER/CAREGIVER(WHO BROUGHT PORTABLE O2 TANK). DC INS PROVIDED, PT AND ELDER UNDERSTAND MEDICATIONS FAXED TO [facility](ELDER PICKED THEM UP PRIOR TO PICKING UP PATIENT FOR DC.
== END 2022-11-04 13:12 | disposition home or self-care (01) ==
LOC: ER 11:39 → MEDS 11:40 → SURS 20:08
PROVIDERS: Emergency Medicine; ADMIT Internal Medicine
DX: R07.89 Other chest pain (principal); J44.1 Chronic obstructive pulmonary disease with (acute) exacerbation; I25.10 Atherosclerotic heart disease of native coronary artery without angina pectoris; I25.2 Old myocardial infarction; J96.11 Chronic respiratory failure with hypoxia; E11.9 Type 2 diabetes mellitus without complications; G47.33 Obstructive sleep apnea (adult) (pediatric); F20.9 Schizophrenia, unspecified; F31.9 Bipolar disorder, unspecified; I11.0 Hypertensive heart disease with heart failure; I50.32 Chronic diastolic (congestive) heart failure; J45.909 Unspecified asthma, uncomplicated; E03.9 Hypothyroidism, unspecified; E66.01 Morbid (severe) obesity due to excess calories; Z88.0 Allergy status to penicillin; Z79.890 Hormone replacement therapy; Z79.82 Long term (current) use of aspirin; Z79.4 Long term (current) use of insulin; Z79.899 Other long term (current) drug therapy
CPT/HCPCS: 36415; 71046; 80053; 82947; 84484; 85025; 93005; 93010; 94640; 94664; 94760; 96365; 96372; 99285-25; A9270; G0378; J0456; J1650; J1815; J7050; J7512

== ENCOUNTER 2024-06-16 04:56 | Emergency (ER) | payer OTHER ==
[~2024-06-16] VITALS: Ht 152.4 cm; Wt 91.6 kg
[~2024-06-16 04:56] MED LIST changes: +ALEVAZOL56.7 G1 TOP; +AZIT500 PO; +BETA.05TCA; +SYMBICORT 160-4.6 GM
[2024-06-16 05:55] LABS: BASOPHILS ABSOLUTE AUTO 0.09 K/mm3 (0.00-0.23); BASOPHILS PERCENT AUTO 1 % (0-2); EOSINOPHILS ABSOLUTE AUTO 0.31 K/mm3 (0.00-0.68); EOSINOPHILS PERCENT AUTO 2 % (0-6); Hematocrit 44.6 % (33.0-51.0); Hemoglobin 13.7 g/dL (11.5-16.0); IMMATURE GRAN ABSOLUTE AUTO 0.35 K/mm3 (0.00-0.10); IMMATURE GRAN PERCENT AUTO 3 % (0-1); LYMPHOCYTES ABSOLUTE AUTO 2.31 K/mm3 (0.84-5.20); LYMPHOCYTES PERCENT AUTO 17 % (21-46); MONOCYTES ABSOLUTE AUTO 1.16 K/mm3 (0.16-1.47); MONOCYTES PERCENT AUTO 9 % (4-13); Mean Corpuscular HGB 29.1 pg (26.0-34.0); Mean Corpuscular HGB Conc 30.7 g/dL (31.5-36.5); Mean Corpuscular Volume 95 fL (80-100); Mean Platelet Volume 10.1 fL (9.1-12.4); NEUTROPHILS ABSOLUTE AUTO 9.38 K/mm3 (1.96-9.15); NEUTROPHILS PERCENT AUTO 69 % (41-73); NRBC ABSOLUTE 0.14 K/mm3 (0.00-0.02); Platelet Count 233 K/mm3 (150-400); RDW Coefficient Variation 18.6 % (11.7-14.2); RDW Standard Deviation 57.4 fL (35.1-46.3); Red Blood Cell Count 4.71 M/mm3 (3.80-5.20)
[2024-06-16 06:23] LABS: Albumin, Blood 3.3 g/dL (3.4-5.0); Bilirubin, Total 0.3 mg/dL (0.1-1.0); Calcium, Blood 8.2 mg/dL (8.5-10.1); Creatinine, Blood 0.61 mg/dL (0.40-1.00); Globulin, Blood 3.2 g/dL (2.2-4.0); Potassium, Blood 4.5 mmol/L (3.5-5.5); Total Protein, Blood 6.5 g/dL (6.4-8.2)
[2024-06-16] MEDS ORDERED: Albuterol 2.5 MG/3 ML VIAL INH SCH (06:55)
[2024-06-16] MEDS ORDERED: MethylPREDNISolone Sod Succ 125 MG Vial IV ONE (08:15)
[2024-06-16] MEDS ORDERED: Azithromycin 250 MG Tab PO ONE (08:15)
[2024-06-16] MEDS ORDERED: AZIT250 PO (10:40)
[2024-06-16] MEDS ORDERED: PRED20 PO (10:40)
[2024-06-16 10:46] VITALS: BP 122/78
== END 2024-06-16 10:59 | disposition home or self-care (01) ==
LOC: ER 04:56
PROVIDERS: Student in an Organized Health Care Education/Training Program
DX: J44.1 Chronic obstructive pulmonary disease with (acute) exacerbation (principal); J45.901 Unspecified asthma with (acute) exacerbation; I11.0 Hypertensive heart disease with heart failure; I50.30 Unspecified diastolic (congestive) heart failure; I10 Essential (primary) hypertension; Z87.891 Personal history of nicotine dependence; Z79.51 Long term (current) use of inhaled steroids; Z79.899 Other long term (current) drug therapy; Z79.02 Long term (current) use of antithrombotics/antiplatelets; Z79.4 Long term (current) use of insulin; Z79.2 Long term (current) use of antibiotics; Z79.890 Hormone replacement therapy; Z79.1 Long term (current) use of non-steroidal anti-inflammatories (NSAID); Z79.84 Long term (current) use of oral hypoglycemic drugs; Z87.892 Personal history of anaphylaxis; Z79.52 Long term (current) use of systemic steroids; Z79.82 Long term (current) use of aspirin; Z91.011 Allergy to milk products; Z91.038 Other insect allergy status
CPT/HCPCS: 36415; 71045; 80053; 83880; 84484; 85025; 93005; 93010; 94640; 94664; 96374; 99285-25; A9270; J2919

== ENCOUNTER 2024-07-13 22:49 | Emergency (ER) | payer OTHER ==
[~2024-07-13] VITALS: Ht 152.4 cm; Wt 90.7 kg
[2024-07-13] MEDS ORDERED: Ipratropium/Albuterol SulF 2.5-0.5MG/3 ML Amp INH PRN (23:20)
[2024-07-13 23:25] LABS: BASOPHILS ABSOLUTE AUTO 0.05 K/mm3 (0.00-0.23); BASOPHILS PERCENT AUTO 0 % (0-2); EOSINOPHILS ABSOLUTE AUTO 0.23 K/mm3 (0.00-0.68); EOSINOPHILS PERCENT AUTO 2 % (0-6); Hematocrit 49.1 % (33.0-51.0); Hemoglobin 15.6 g/dL (11.5-16.0); IMMATURE GRAN ABSOLUTE AUTO 0.07 K/mm3 (0.00-0.10); IMMATURE GRAN PERCENT AUTO 1 % (0-1); LYMPHOCYTES ABSOLUTE AUTO 2.55 K/mm3 (0.84-5.20); LYMPHOCYTES PERCENT AUTO 21 % (21-46); MONOCYTES ABSOLUTE AUTO 1.07 K/mm3 (0.16-1.47); MONOCYTES PERCENT AUTO 9 % (4-13); Mean Corpuscular HGB Conc 31.8 g/dL (31.5-36.5); Mean Corpuscular Volume 91 fL (80-100); NEUTROPHILS ABSOLUTE AUTO 7.99 K/mm3 (1.96-9.15); NEUTROPHILS PERCENT AUTO 67 % (41-73); Platelet Count 246 K/mm3 (150-400); RDW Coefficient Variation 16.5 % (11.7-14.2); RDW Standard Deviation 55.4 fL (35.1-46.3); Red Blood Cell Count 5.38 M/mm3 (3.80-5.20); White Blood Cell Count 11.96 K/mm3 (4.00-11.30)
[2024-07-13 23:37] LABS: Albumin, Blood 3.4 g/dL (3.4-5.0); Albumin/Globulin Ratio 1.1 (0.8-1.8); Bilirubin, Total 0.2 mg/dL (0.1-1.0); Calcium, Blood 8.5 mg/dL (8.5-10.1); Creatinine, Blood 0.75 mg/dL (0.40-1.00); Globulin, Blood 3.1 g/dL (2.2-4.0); Total Protein, Blood 6.5 g/dL (6.4-8.2)
[2024-07-14] MEDS ORDERED: AZIT250 PO (00:19)
[2024-07-14 00:50] VITALS: BP 138/72
== END 2024-07-14 00:51 | disposition home or self-care (01) ==
LOC: ER 22:49
PROVIDERS: Student in an Organized Health Care Education/Training Program
DX: J45.901 Unspecified asthma with (acute) exacerbation (principal); N75.0 Cyst of Bartholin's gland; E11.9 Type 2 diabetes mellitus without complications; E03.9 Hypothyroidism, unspecified; I10 Essential (primary) hypertension; G47.33 Obstructive sleep apnea (adult) (pediatric); E78.00 Pure hypercholesterolemia, unspecified; Z99.81 Dependence on supplemental oxygen; Z87.891 Personal history of nicotine dependence; Z88.0 Allergy status to penicillin; Z88.8 Allergy status to other drugs, medicaments and biological substances; Z91.011 Allergy to milk products; Z91.030 Bee allergy status; Z91.018 Allergy to other foods; Z79.890 Hormone replacement therapy; Z79.84 Long term (current) use of oral hypoglycemic drugs; Z79.82 Long term (current) use of aspirin; Z79.51 Long term (current) use of inhaled steroids; Z79.01 Long term (current) use of anticoagulants; Z79.4 Long term (current) use of insulin; Z79.52 Long term (current) use of systemic steroids; Z79.899 Other long term (current) drug therapy
CPT/HCPCS: 71046; 80053; 84484; 85025; 93005; 93010; 94640; 94664

== ENCOUNTER 2024-10-30 22:26 | Emergency (ER) | payer OTHER ==
[~2024-10-30] VITALS: Ht 152.4 cm; Wt 90.7 kg
[2024-10-30] MEDS ORDERED: Tetracaine HCl/Pf 0.5% Opth Soln 4 ml RIGHTEYE ONE (23:25)
[2024-10-30] MEDS ORDERED: Fluorescein Sod 1MG Opth Strips RIGHTEYE ONE (23:25)
[2024-10-31] MEDS ORDERED: ERYT.5TO RIGHTEYE (00:07)
[2024-10-31 00:32] VITALS: BP 108/83
[2024-10-31] MEDS ORDERED: Erythromycin 0.5% Opth Oint 3.5 gm RIGHTEYE ONE (23:55)
== END 2024-10-31 01:44 | disposition home or self-care (01) ==
LOC: ER 22:26
DX: S05.01XA Injury of conjunctiva and corneal abrasion without foreign body, right eye, initial encounter (principal); H11.31 Conjunctival hemorrhage, right eye; I11.0 Hypertensive heart disease with heart failure; I50.30 Unspecified diastolic (congestive) heart failure; G47.33 Obstructive sleep apnea (adult) (pediatric); E11.9 Type 2 diabetes mellitus without complications; J45.909 Unspecified asthma, uncomplicated; J44.9 Chronic obstructive pulmonary disease, unspecified; F17.200 Nicotine dependence, unspecified, uncomplicated; W22.01XA Walked into wall, initial encounter; Z91.011 Allergy to milk products; Z88.0 Allergy status to penicillin; Z88.8 Allergy status to other drugs, medicaments and biological substances; Z91.030 Bee allergy status; Z79.899 Other long term (current) drug therapy; Z79.82 Long term (current) use of aspirin; Z79.4 Long term (current) use of insulin; Z79.2 Long term (current) use of antibiotics
CPT/HCPCS: 90471; 90715; 99283-25; A9270

== ENCOUNTER 2025-01-09 19:10 | Emergency (ER) | payer OTHER ==
[~2025-01-09] VITALS: Ht 162.6 cm; Wt 88.9 kg
[~2025-01-09 19:10] MED LIST changes: +ERYT.5TO RIGHTEYE
[2025-01-09 19:21] VITALS: BP 156/127
[2025-01-09 19:42] LABS: BASOPHILS ABSOLUTE AUTO 0.04 K/mm3 (0.00-0.23); BASOPHILS PERCENT AUTO 0 % (0-2); EOSINOPHILS ABSOLUTE AUTO 0.32 K/mm3 (0.00-0.68); EOSINOPHILS PERCENT AUTO 2 % (0-6); Hematocrit 46.2 % (33.0-51.0); Hemoglobin 15.2 g/dL (11.5-16.0); IMMATURE GRAN ABSOLUTE AUTO 0.07 K/mm3 (0.00-0.10); IMMATURE GRAN PERCENT AUTO 0 % (0-1); LYMPHOCYTES ABSOLUTE AUTO 2.40 K/mm3 (0.84-5.20); LYMPHOCYTES PERCENT AUTO 15 % (21-46); MONOCYTES ABSOLUTE AUTO 1.56 K/mm3 (0.16-1.47); MONOCYTES PERCENT AUTO 10 % (4-13); Mean Corpuscular HGB Conc 32.9 g/dL (31.5-36.5); Mean Corpuscular Volume 89 fL (80-100); NEUTROPHILS ABSOLUTE AUTO 11.96 K/mm3 (1.96-9.15); NEUTROPHILS PERCENT AUTO 73 % (41-73); NRBC ABSOLUTE 0.00 K/mm3 (0.00-0.02); NRBC Auto 0.0 /100 WBC (0.0-0.2); Platelet Count 308 K/mm3 (150-400); RDW Coefficient Variation 14.0 % (11.7-14.2); RDW Standard Deviation 45.1 fL (35.1-46.3)
[2025-01-09 20:12] LABS: Alanine Aminotransfer (ALT/SGP 35.0 U/L (12-78); Albumin, Blood 3.9 g/dL (3.4-5.0); Albumin/Globulin Ratio 1.3 (0.8-1.8); Anion Gap 8.0 mmol/L (3-11); Aspartate Aminotrans (AST/SGOT 15.0 U/L (12-37); Bilirubin, Total 0.3 mg/dL (0.1-1.0); Blood Urea Nitrogen 20.0 mg/dL (8-24); CO2, Blood 27.0 mmol/L (21-32); Calcium, Blood 8.8 mg/dL (8.5-10.1); Chloride, Blood 103.0 mmol/L (98-108); Creatinine, Blood 0.89 mg/dL (0.40-1.00); Globulin, Blood 2.9 g/dL (2.2-4.0); Glucose, Blood 196.0 mg/dL (70-99); Potassium, Blood 3.4 mmol/L (3.5-5.5); Sodium, Blood 135.0 mmol/L (136-145); Total Protein, Blood 6.8 g/dL (6.4-8.2)
[2025-01-09 21:05] LABS: Source, Urine Voided
[2025-01-09 21:13] LABS: Bilirubin, Urine Neg (Neg); Color, Urine Yellow (P-Yellow); Glucose Qualitative, Urine 4+ (Neg); Ketones, Urine Neg (Neg); Leukocyte Esterase, Urine Neg (Neg); Protein, Urine 1+ (Neg); Specific Gravity, Urine 1.010 (1.003-1.022); Urobilinogen, Urine NORM (Normal)
[2025-01-09] MEDS ORDERED: Magnesium Citr296 ML PO (21:48)
== END 2025-01-09 21:59 | disposition home or self-care (01) ==
LOC: ER 19:10
PROVIDERS: Emergency Medicine
DX: R10.9 Unspecified abdominal pain (principal); E11.9 Type 2 diabetes mellitus without complications; J44.9 Chronic obstructive pulmonary disease, unspecified; I11.0 Hypertensive heart disease with heart failure; I50.32 Chronic diastolic (congestive) heart failure; F17.290 Nicotine dependence, other tobacco product, uncomplicated; Z91.0110 Allergy to milk products, unspecified; Z88.0 Allergy status to penicillin; Z91.018 Allergy to other foods; Z79.899 Other long term (current) drug therapy
CPT/HCPCS: 74177; 80053; 83690; 85025; 99284-25; Q9967